=== PATIENT | male | born 1960 | race Caucasian/White ===

== ENCOUNTER → 2021-05-31 11:14 | Outpatient (BNVA) | payer BC, SELFPAY | PROVIDERS: Family Provider Family Medicine; Visit Provider Family Medicine | DX: Z76.89 Persons encountering health services in other specified circumstances (principal) | CPT/HCPCS: 80053; 84443; 85025 ==

== ENCOUNTER 2021-06-25 14:25 | Outpatient (CLI) | payer BC, SELFPAY ==
[2021-06-25 15:30] LABS: Basophils # 0.3 10^3/uL (0.0-0.1); Basophils % 0.4 %; Eosinophils # 0.5 10^3/uL (0.0-0.8); Eosinophils % 0.5 %; Hematocrit 44.1 % (42.0-52.0); Hemoglobin 13.5 g/dL (11.7-16.6); Lymphocytes # 76.3 10^3/uL (0.8-4.8); Lymphocytes % 79.7 %; Mean Corpuscular HGB Conc 30.6 g/dL (30.0-36.0); Mean Corpuscular Hemoglobin 28.2 pg (28.0-34.0); Mean Corpuscular Volume 92.1 fl (80-94); Mean Platelet Volume 11.9 fL (7.4-10.4); Monocytes % 10.5 %; Neutrophils # 7.72 10^3/uL (1.8-7.7); Nucleated Red Blood Cells % 0 %; Platelet Count 235 10^3/cmm (130-400); Red Blood Count 4.79 10^6/uL (4.1-5.3); Red Cell Distribution Width 14.2 % (12.1-15.1)
[2021-06-25 15:50] LABS: Alanine Aminotransferase 16 U/L (0-41); Albumin Level 4.6 g/dL (3.5-5.2); Alkaline Phosphatase 88 IU/L (40-130); Aspartate Amino Transferase 23 U/L (0-40); Blood Urea Nitrogen 13 mg/dL (8-23); Calcium 8.7 mg/dL (8.5-10.5); Carbon Dioxide 28 mmol/L (22-29); Chloride 104 mmol/L (98-107); Globulin 1.9 g/dL (1.3-4.6); Glomerular Filtration Rate 97.6 mL/min (90-130); Glucose 93 mg/dL (65-115); Osmolality Calculated 294 mOsm/kg (285-295); Sodium 142 mmol/L (136-145); Total Bilirubin 0.3 mg/dL (0.15-1.2); Total Protein 6.5 g/dL (6.6-8.7)
[2021-06-25 15:52] LABS: Slide Review Slide Review Perform; White Blood Count 95.8 10^3/uL (4.0-10.0)
[2021-06-25 15:56] LABS: Lactate Dehydrogenase 230 U/L (135-225)
--- NOTE | 2021-06-27 10:14 | ONC CON_ITS ---
Dr. Mattson New Patient Note Patient: Phuc Wood Unit #: [id number]: [id number] Dicatated By: Kevin Mattson M.D.Date of Visit: Jun 25, 2021 Onc MED New Patient/Consult Referring Physician: Trenton Willard D.O. History of Present Illness: Mr. Richard Wood, is a 61-year-old gentleman with recent history of confusion,, incontinence and, acting 'drunk', underwent CT scan of head on May 19, 2021 which showed large right frontal/parietal convexity subacute subdural hematoma producing prominent leftward displacement, patient denies any history of trauma or fall. Subsequently underwent jarrell hole for right-sided subdural drain placement for evacuation of hematoma and lab work-up done at that time, showed leukocytosis/lymphocytosis, white blood count 34.83, hemoglobin 12 g hematocrit 29.1 platelets 203,000 absolute lymphocyte count 21,690 ANC 10,430., CMP within normal limits, because of lower back pain patient underwent CT scan of lumbar which shows retroperitoneal lymphadenopathy and C-spine CT scan also shows cervical lymphadenopathy on May 22, 2021, CBC showed white blood count 42.43 hemoglobin 12.8 g hematocrit 39.1 platelets 256,000 with lymphocytosis, patient also underwent right inguinal lymph node biopsy and flow cytometry showed CD5 positive monoclonal B-cell population is detected, finding consistent with clonal lymphocytic leukemia/small lymphocytic lymphoma. Patient denies smoking or alcohol use, Denies any family history of CLL but one of his uncle with history of non-Hodgkin lymphoma Patient denies any night sweats, denies any recurrent fever, denies any weight loss. As per patient earlier he tried to lose weight by watching his diet but denies any abdominal fullness, denies any jaundice denies any urine or stool color changes, denies any shortness of breath or abdominal pain. Past Medical History: Mr. Wood's medical history is unremarkable. Past Surgical History: Mr. Wood's surgical/procedural history consists of hernia repair, Covid vaccine #2 Moderna in 2020, and Covid vaccine #1 Moderna in 2020. Medications: There is no information available for Current Medications - Patient. Allergies: No Known Allergies. Social History: Mr. Wood is . Mr. Wood has never smoked. He drinks occasionally. He has indicated exposure to the following products: recreational drug use and marijuana user. Family History: Mr. Wood's mother is alive. Mr. Wood's father at age 57: myocardial infarction, and type II diabetes, and hypertension, and heart disease. Review Of Symptoms: Review of Systems is not available for this patient. Vital Signs: Performed on Jun 25, 2021 16:04: 6, 0, 22.05, 1.95 sq.m, 72 in, 96 %, 82 /min, 16 /min, 113/76 mm(hg), 98.6 F, and 162.6 lbs (HIGH). Performance Status: 0 - Fully active, able to carry on all predisease activities without restrictions. (ECOG) Physical Examination: ENMT - No mouth sores, no thrush, no jaundice, bilateral cervical lymphadenopathy index lymph node is about 2 cm size. And bilateral axillary/inguinal lymphadenopathy, Respiratory - Lungs are clear to auscultation, Cardiovascular - Regular rate and rhythm of heart, Abdomen - Soft, bowel sounds present, Extremities - No visible edema, status post right inguinal lymph node excisional biopsy. Lab/Imaging: Most recent lab results are not available for this patient. Impression: Chronic lymphocytic leukemia with peripheral/central lymphadenopathy per right inguinal lymph node biopsy/flow cytometry done on May 22, 2021 and [facility]. CBC done on May 19, 2021 showed white blood count 34.83, hemoglobin 12 g medical 38.1 platelets 203,000 with absolute lymphocyte count 21,000+ Right subdural hematoma status post jarrell hole for drainage on May 22, 2021 Plan: Discussed with patient regarding his labs white blood count 95.8 hemoglobin 13.5 g medical 44.1 platelets 225,000 absolute neutrophil count 7720, absolute lymphocyte count 76,300 CMP within normal limits LDH 230 Clinically, patient doing well with no new signs symptoms e.g. B symptoms and follow-up labs shows progressive leukocytosis/lymphocytosis, 95.8 thousand compared to 60.6 thousand in CBC done on May 31, 2021, but remaining CBC showed hemoglobin/platelet count is within normal range. On exam he has extensive peripheral lymphadenopathy. At this point, will consider CLL molecular prognostic profile and CT scan of chest abdomen pelvis, patient will return to clinic in 2 weeks with CBC CMP and LDH, after reviewing above-mentioned work-up, will plan. Signed By: Kevin Mattson M.D. <<Signature on File>>
== END 2021-06-25 14:26 | disposition home or self-care (01) ==
LOC: ONCMED 14:31
PROVIDERS: PCP Family Medicine; Visit Provider Internal Medicine Hematology & Oncology
DX: C91.10 Chronic lymphocytic leukemia of B-cell type not having achieved remission (principal); R59.0 Localized enlarged lymph nodes; Z86.79 Personal history of other diseases of the circulatory system
CPT/HCPCS: 36415; 80053; 81263; 82232; 83615; 85025; 88185; 88264; 88271; 88367; 88374; 99205

== ENCOUNTER 2021-07-11 10:00 | Oncology outpatient (recurring) (ONCR) | payer BC, SELFPAY ==
--- NOTE | 2021-07-04 10:11 | CT_ITS ---
WS: [id number] CT CHEST, ABDOMEN AND PELVIS WITH CONTRAST. HISTORY: CHRONIC LYMPHOCYTIC LEUKEMIA TECHNIQUE: Contiguous 5 mm axial imaging performed through the chest, abdomen and pelvis with IV cont rast, oral contrast has been provided. Coronal and sagittal reformats chest. Coronal and sagittal ref ormats through the abdomen and pelvis. All CT scans at [facility] use at least one of these d ose optimization techniques: automated exposure control; mA and/or kV adjustment per patient size (in cludes targeted exams where dose is matched to clinical indication); or iterative reconstruction. CONTRAST: Omnipaque 350; 95 mL IV. DLP: 1540.51 mGy.cm COMPARISON: 05/20/[address]: No pulmonary mass or nodule. No pleural effusion. Heart size is normal. No pericardial effu deena. Focal soft tissue thickening involving the anterior pericardium. Normal size pulmonary artery. Normal thoracic aorta. Enlarged inferior RIGHT thyroid extends substernal. There is extensive lymphadenopathy throughout the thorax. Beginning in the lower neck and supraclavic ular there are bilateral enlarged lymph nodes. The largest lymph node LEFT supraclavicular measures 2 .0 cm in diameter. There are numerous lymph nodes present in the supraclavicular regions but greater size and number on the LEFT. Additional level 5 lymph nodes are noted bilaterally with the largest me asuring up to 1.5 cm. Bilateral axillary lymphadenopathy. Numerous enlarged hypervascular lymph nodes with the largest LEFT axilla measuring 3.2 cm. LEFT anterior lymph node measures 1.9 cm and extends between the LEFT subclavian artery and vein. There are additional enlarged RIGHT paratracheal lymph n odes. Mediastinal and hilar lymph nodes. These lymph nodes are poorly defined but there is increased density within the mediastinal fat. Additional bilateral hilar lymph nodes with the largest on the RI GHT measuring 2.2 cm. Subcarinal lymph node measures 1.5 cm. Bilateral retrocrural lymph nodes and th ickening of the retrocrural soft tissue bilaterally. The largest retrocrural lymph node measures 1.2 cm on the RIGHT. Several small lymph nodes adjacent to the distal esophagus. Abdomen CT: Liver is mildly enlarged gland and just greater than 16 cm in length. Mild central bile d uct dilatation with the common bile duct measuring 1.1 cm. Prior cholecystectomy. Spleen is normal si ze at 10 cm in length. No pancreatic head mass identified. Pancreas is negative. Bilateral low-attenu ation adrenal masses. The largest on the LEFT measures 3.5 x 3.1 cm. The RIGHT adrenal gland nodule m easures 2.0 x 1.5 cm. Moderate cortical thinning and atrophy of the RIGHT kidney. No obstruction. Exo phytic cyst from the posterior RIGHT kidney measures 2.2 x 1.7 cm. Normal size LEFT kidney. No obstru ction or hydronephrosis. Mild atherosclerosis aorta. There is extensive lymphadenopathy throughout the abdomen. Beginning at the level of the GE junction there are numerous lymph nodes which extend inferiorly along the gastrohepatic ligament with the larg est measuring 1.5 cm. Numerous lymph nodes at the celiac axis and extending into the marely hepatis. A t the marely hepatis there is a lymph node measuring 2.4 cm which is displacing the common bile duct a nd the pancreatic head anteriorly. Lymph nodes continue from the marely hepatis adjacent to the celiac axis. Numerous retroperitoneal lymph nodes at the level of the renal veins. Para-aortic and aortocav al enlarged lymph nodes. There is also some very mild stranding within the retroperitoneal fat. Large st lymph nodes measure approximately 1.2 cm. Lymphadenopathy continues along the iliac chains, bilate ral. Bilateral inguinal lymph nodes. Largest inguinal lymph node measures 1.7 cm on the RIGHT. No GI tract obstruction evident. The appendix is not definitely identified. There are small lymph nod es in the RIGHT lower quadrant but no evidence for appendicitis. Pelvic CT: No free fluid in the pelvis. Urinary bladder is well distended. Mild encroachment into the bladder by a heterogeneously mildly enlarged prostate. No osteoblastic or osteolytic bone lesions are identified. Single sclerotic focus in the posterior T1 1 vertebral body may be a small bone island. No destructive bone masses. CT/CT chest abd pel w con* IMPRESSION: 1. There is extensive lymphadenopathy throughout the chest, abdomen and pelvis . Bilateral supraclavicular and axillary lymph nodes. Numerous lymph nodes in t he retroperitoneum and along the iliac chains into the inguinal regions as abov e. 2. As compared to the prior neck CT from 05/20/2021 there has been a slight inc rease in size of the supraclavicular lymph nodes. 3. No pulmonary mass or pneumonia. 4. Prior cholecystectomy with mild central bile duct dilatation. 5. Bilateral adrenal low-attenuation masses. Favor bilateral adenomas due to l ow attenuation. On the noncontrast lumbar spine CT of 05/19/2021 adrenal nodules consistent with adenomas. 6. Moderate cortical thinning and atrophy RIGHT kidney with a RIGHT renal cyst . 7. Prostate enlargement.
[2021-07-04] MEDS: iohexol 300 mg/mL 50 mL Btl PO (12:10)
[2021-07-04] MEDS: iohexol 350 mg/mL 100 mL Btl IV (12:10)
[2021-07-11 10:10] LABS: Basophils # 0.5 10^3/uL (0.0-0.1); Basophils % 0.4 %; Eosinophils # 0.5 10^3/uL (0.0-0.8); Eosinophils % 0.5 %; Hematocrit 43.8 % (42.0-52.0); Hemoglobin 13.6 g/dL (11.7-16.6); Lymphocytes # 91.3 10^3/uL (0.8-4.8); Mean Corpuscular HGB Conc 31.1 g/dL (30.0-36.0); Mean Corpuscular Hemoglobin 28.7 pg (28.0-34.0); Mean Corpuscular Volume 92.4 fl (80-94); Mean Platelet Volume 11.6 fL (7.4-10.4); Monocytes # 10.9 10^3/uL (0.2-0.9); Monocytes % 9.8 %; Neutrophils # 7.35 10^3/uL (1.8-7.7); Neutrophils % 6.6 %; Nucleated Red Blood Cells % 0 %; Platelet Count 218 10^3/cmm (130-400); Red Blood Count 4.74 10^6/uL (4.1-5.3); Red Cell Distribution Width 14.6 % (12.1-15.1)
[2021-07-11 10:26] LABS: Alanine Aminotransferase 16 U/L (0-41); Albumin Level 4.4 g/dL (3.5-5.2); Alkaline Phosphatase 90 IU/L (40-130); Anion Gap 13.7 (5-19); Aspartate Amino Transferase 21 U/L (0-40); Blood Urea Nitrogen 12 mg/dL (8-23); Calcium 9.4 mg/dL (8.5-10.5); Carbon Dioxide 27 mmol/L (22-29); Chloride 102 mmol/L (98-107); Globulin 2.6 g/dL (1.3-4.6); Glomerular Filtration Rate 97.6 mL/min (90-130); Glucose 111 mg/dL (65-115); Lactate Dehydrogenase 174 U/L (135-225); Osmolality Calculated 286 mOsm/kg (285-295); Potassium 4.7 mmol/L (3.5-5.1); Sodium 138 mmol/L (136-145); Total Bilirubin 0.4 mg/dL (0.15-1.2)
[2021-07-11 10:46] LABS: White Blood Count 111.4 10^3/uL (4.0-10.0)
[2021-07-11 10:47] LABS: Slide Review Slide Review Perform
== END 2021-07-31 23:59 | disposition home or self-care (01) ==
PROVIDERS: PCP Family Medicine; Visit Provider Internal Medicine Hematology & Oncology
DX: C91.10 Chronic lymphocytic leukemia of B-cell type not having achieved remission (principal); D35.02 Benign neoplasm of left adrenal gland; D35.01 Benign neoplasm of right adrenal gland; N40.0 Benign prostatic hyperplasia without lower urinary tract symptoms; R53.1 Weakness; R53.83 Other fatigue; Z79.899 Other long term (current) drug therapy
CPT/HCPCS: 36415; 71260; 74177; 80053; 83615; 85025

== ENCOUNTER 2021-08-23 07:40 | Oncology outpatient (recurring) (ONCR) | payer BC, SELFPAY ==
[2021-08-23 08:12] LABS: Hematocrit 42.1 % (42.0-52.0); Hemoglobin 12.8 g/dL (11.7-16.6); Mean Corpuscular HGB Conc 30.4 g/dL (30.0-36.0); Mean Corpuscular Hemoglobin 28.3 pg (28.0-34.0); Mean Corpuscular Volume 93.1 fl (80-94); Mean Platelet Volume 12.4 fL (7.4-10.4); Platelet Count 182 10^3/cmm (130-400); Red Blood Count 4.52 10^6/uL (4.1-5.3); Red Cell Distribution Width 14.9 % (12.1-15.1)
[2021-08-23 08:34] LABS: Alanine Aminotransferase 22 U/L (0-41); Albumin Level 4.5 g/dL (3.5-5.2); Alkaline Phosphatase 101 IU/L (40-130); Anion Gap 11.7 (5-19); Aspartate Amino Transferase 33 U/L (0-40); Blood Urea Nitrogen 12 mg/dL (8-23); Calcium 9.3 mg/dL (8.5-10.5); Carbon Dioxide 29 mmol/L (22-29); Chloride 105 mmol/L (98-107); Globulin 1.9 g/dL (1.3-4.6); Glomerular Filtration Rate 97.6 mL/min (90-130); Glucose 128 mg/dL (65-115); Osmolality Calculated 293 mOsm/kg (285-295); Potassium 4.7 mmol/L (3.5-5.1); Sodium 141 mmol/L (136-145); Total Bilirubin 0.4 mg/dL (0.15-1.2); Total Protein 6.4 g/dL (6.6-8.7); Uric Acid 5.1 mg/dL (3.4-7.0)
[2021-08-23 08:41] LABS: Lactate Dehydrogenase 216 U/L (135-225)
[2021-08-23 09:03] LABS: Slide Review Slide Review Perform; Total Cells Counted 100 (0-100)
[2021-08-23 09:04] LABS: Absolute Segmented Neutrophil 9.1 10/cmm (1.6-7.1); Lymphocytes 25 %; Platelet Estimate Decreased (Normal); Segmented Neutrophils 5 %
[2021-08-23 09:06] LABS: White Blood Count 181.8 10^3/uL (4.0-10.0)
[2021-08-23 09:07] LABS: Lymphocytes Absolute 172.7 10^3/cmm (1.2-3.4)
== END 2021-08-30 23:59 | disposition home or self-care (01) ==
PROVIDERS: PCP Family Medicine; Visit Provider Internal Medicine Hematology & Oncology
DX: C91.10 Chronic lymphocytic leukemia of B-cell type not having achieved remission (principal)
CPT/HCPCS: 80053; 83615; 84550; 85007; 85025; 99214

== ENCOUNTER 2021-09-19 14:30 | Oncology outpatient (recurring) (ONCR) | payer BC, SELFPAY ==
[2021-09-05 14:16] LABS: Hematocrit 44.1 % (42.0-52.0); Hemoglobin 12.4 g/dL (11.7-16.6); Mean Corpuscular HGB Conc 28.1 g/dL (30.0-36.0); Mean Corpuscular Volume 96.1 fl (80-94); Platelet Count 215 10^3/cmm (130-400); Red Blood Count 4.59 10^6/uL (4.1-5.3); Red Cell Distribution Width 16.5 % (12.1-15.1)
[2021-09-05 14:28] LABS: Alanine Aminotransferase 15 U/L (0-41); Albumin Level 4.4 g/dL (3.5-5.2); Alkaline Phosphatase 119 IU/L (40-130); Anion Gap 13.6 (5-19); Aspartate Amino Transferase 17 U/L (0-40); Blood Urea Nitrogen 11 mg/dL (8-23); Calcium 9.4 mg/dL (8.5-10.5); Carbon Dioxide 29 mmol/L (22-29); Chloride 99 mmol/L (98-107); Globulin 2.4 g/dL (1.3-4.6); Glomerular Filtration Rate 97.6 mL/min (90-130); Glucose 97 mg/dL (65-115); Lactate Dehydrogenase 148 U/L (135-225); Osmolality Calculated 283 mOsm/kg (285-295); Potassium 4.6 mmol/L (3.5-5.1); Sodium 137 mmol/L (136-145); Total Bilirubin 0.3 mg/dL (0.15-1.2); Total Protein 6.8 g/dL (6.6-8.7); Uric Acid 3.2 mg/dL (3.4-7.0)
[2021-09-05 14:37] LABS: White Blood Count 223.5 10^3/uL (4.0-10.0)
[2021-09-05 14:38] LABS: Slide Review Slide Review Perform
[2021-09-05 14:46] LABS: Absolute Eosinophils 8.9 10^3/cmm (0.0-0.7); Absolute Neutrophil 6.7 10^3/cmm (1.4-6.5); Absolute Segmented Neutrophil 6.7 10/cmm (1.6-7.1); Eosinophils 4 %; Lymphocytes 93 %; Lymphocytes Absolute 207.9 10^3/cmm (1.2-3.4); Platelet Estimate Normal (Normal); Segmented Neutrophils 3 %; Total Cells Counted 100 (0-100)
[2021-09-05 14:59] LABS: Smudge Cells 1+
[2021-09-12 09:34] LABS: Basophils # 0.1 10^3/uL (0.0-0.1); Eosinophils # 0.4 10^3/uL (0.0-0.8); Eosinophils % 0.2 %; Hematocrit 42.6 % (42.0-52.0); Hemoglobin 12.5 g/dL (11.7-16.6); Lymphocytes % 95.8 %; Mean Corpuscular HGB Conc 29.3 g/dL (30.0-36.0); Mean Corpuscular Hemoglobin 28.1 pg (28.0-34.0); Mean Corpuscular Volume 95.7 fl (80-94); Mean Platelet Volume 11.6 fL (7.4-10.4); Monocytes # 1.2 10^3/uL (0.2-0.9); Monocytes % 0.5 %; Neutrophils # 6.66 10^3/uL (1.8-7.7); Neutrophils % 3.1 %; Nucleated Red Blood Cells % 0 %; Platelet Count 234 10^3/cmm (130-400); Red Blood Count 4.45 10^6/uL (4.1-5.3)
[2021-09-12 09:58] LABS: Alanine Aminotransferase 20 U/L (0-41); Albumin Level 4.5 g/dL (3.5-5.2); Alkaline Phosphatase 117 IU/L (40-130); Anion Gap 11.5 (5-19); Aspartate Amino Transferase 17 U/L (0-40); Blood Urea Nitrogen 14 mg/dL (8-23); Calcium 9.4 mg/dL (8.5-10.5); Carbon Dioxide 30 mmol/L (22-29); Chloride 102 mmol/L (98-107); Globulin 2.2 g/dL (1.3-4.6); Glomerular Filtration Rate 113.9 mL/min (90-130); Glucose 195 mg/dL (65-115); Osmolality Calculated 294 mOsm/kg (285-295); Potassium 4.5 mmol/L (3.5-5.1); Sodium 139 mmol/L (136-145); Total Bilirubin 0.4 mg/dL (0.15-1.2); Total Protein 6.7 g/dL (6.6-8.7)
[2021-09-12 10:00] LABS: Lymphocytes # 208.5 10^3/uL (0.8-4.8); Slide Review Slide Review Perform; White Blood Count 217.5 10^3/uL (4.0-10.0)
[2021-09-12 10:03] LABS: Lactate Dehydrogenase 150 U/L (135-225)
[2021-09-19 15:18] LABS: Basophils # 0.2 10^3/uL (0.0-0.1); Basophils % 0.1 %; Eosinophils # 0.4 10^3/uL (0.0-0.8); Eosinophils % 0.2 %; Lymphocytes % 92.1 %; Mean Corpuscular Hemoglobin 28.2 pg (28.0-34.0); Mean Corpuscular Volume 94.1 fl (80-94); Mean Platelet Volume 11.2 fL (7.4-10.4); Monocytes # 7.7 10^3/uL (0.2-0.9); Monocytes % 3.1 %; Neutrophils # 9.91 10^3/uL (1.8-7.7); Neutrophils % 3.9 %; Nucleated Red Blood Cells % 0 %; Platelet Count 256 10^3/cmm (130-400); Red Blood Count 4.25 10^6/uL (4.1-5.3); Red Cell Distribution Width 15.5 % (12.1-15.1)
[2021-09-19 16:14] LABS: Alanine Aminotransferase 18 U/L (0-41); Albumin Level 4.3 g/dL (3.5-5.2); Alkaline Phosphatase 117 IU/L (40-130); Anion Gap 13.6 (5-19); Aspartate Amino Transferase 23 U/L (0-40); Blood Urea Nitrogen 10 mg/dL (8-23); Calcium 8.9 mg/dL (8.5-10.5); Carbon Dioxide 28 mmol/L (22-29); Chloride 102 mmol/L (98-107); Globulin 2.1 g/dL (1.3-4.6); Glomerular Filtration Rate 113.9 mL/min (90-130); Glucose 105 mg/dL (65-115); Osmolality Calculated 287 mOsm/kg (285-295); Potassium 4.6 mmol/L (3.5-5.1); Sodium 139 mmol/L (136-145); Total Bilirubin 0.3 mg/dL (0.15-1.2); Total Protein 6.4 g/dL (6.6-8.7)
[2021-09-19 18:08] LABS: Lymphocytes # 230.1 10^3/uL (0.8-4.8); Slide Review Slide Review Perform
[2021-09-20 10:35] LABS: White Blood Count 249.8 10^3/uL (4.0-10.0)
== END 2021-09-30 23:59 | disposition home or self-care (01) ==
PROVIDERS: Nurse Practitioner Family; PCP Family Medicine; Visit Provider Internal Medicine Hematology & Oncology
DX: C91.10 Chronic lymphocytic leukemia of B-cell type not having achieved remission (principal)
CPT/HCPCS: 36415; 80053; 83615; 84550; 85007; 85025

== ENCOUNTER 2021-10-26 09:30 | Oncology outpatient (recurring) (ONCR) | payer BC, SELFPAY ==
[2021-10-04 09:26] LABS: Basophils # 0.2 10^3/uL (0.0-0.1); Basophils % 0.1 %; Eosinophils # 0.5 10^3/uL (0.0-0.8); Eosinophils % 0.2 %; Hematocrit 40.9 % (42.0-52.0); Lymphocytes % 91.3 %; Mean Corpuscular HGB Conc 29.3 g/dL (30.0-36.0); Mean Corpuscular Volume 95.3 fl (80-94); Mean Platelet Volume 11.5 fL (7.4-10.4); Monocytes # 5.1 10^3/uL (0.2-0.9); Monocytes % 2.3 %; Neutrophils # 12.08 10^3/uL (1.8-7.7); Neutrophils % 5.6 %; Nucleated Red Blood Cells % 0 %; Platelet Count 233 10^3/cmm (130-400); Red Blood Count 4.29 10^6/uL (4.1-5.3); Red Cell Distribution Width 16.3 % (12.1-15.1)
[2021-10-04 09:46] LABS: Lymphocytes # 199.9 10^3/uL (0.8-4.8); Slide Review Slide Review Perform; White Blood Count 218.9 10^3/uL (4.0-10.0)
[2021-10-04 09:48] LABS: Alanine Aminotransferase 13 U/L (0-41); Albumin Level 4.1 g/dL (3.5-5.2); Alkaline Phosphatase 126 IU/L (40-130); Anion Gap 12.7 (5-19); Aspartate Amino Transferase 18 U/L (0-40); Blood Urea Nitrogen 9 mg/dL (8-23); Calcium 9.4 mg/dL (8.5-10.5); Carbon Dioxide 26 mmol/L (22-29); Chloride 102 mmol/L (98-107); Globulin 2.3 g/dL (1.3-4.6); Glomerular Filtration Rate 113.9 mL/min (90-130); Glucose 181 mg/dL (65-115); Osmolality Calculated 285 mOsm/kg (285-295); Potassium 4.7 mmol/L (3.5-5.1); Sodium 136 mmol/L (136-145); Total Bilirubin 0.3 mg/dL (0.15-1.2); Total Protein 6.4 g/dL (6.6-8.7)
[2021-10-26 09:57] LABS: Hematocrit 43.3 % (42.0-52.0); Hemoglobin 12.1 g/dL (11.7-16.6); Mean Corpuscular HGB Conc 27.9 g/dL (30.0-36.0); Mean Corpuscular Hemoglobin 28.5 pg (28.0-34.0); Mean Corpuscular Volume 102.1 fl (80-94); Mean Platelet Volume 11.7 fL (7.4-10.4); Platelet Count 199 10^3/cmm (130-400); Red Blood Count 4.24 10^6/uL (4.1-5.3); Red Cell Distribution Width 16.4 % (12.1-15.1)
[2021-10-26 10:24] LABS: Alanine Aminotransferase 14 U/L (0-41); Albumin Level 4.2 g/dL (3.5-5.2); Alkaline Phosphatase 122 U/L (40-130); Aspartate Amino Transferase 18 U/L (0-40); Blood Urea Nitrogen 11 mg/dL (8-23); Calcium 8.9 mg/dL (8.5-10.5); Carbon Dioxide 29 mmol/L (22-29); Chloride 105 mmol/L (98-107); Creatinine Clr Calc Pharmacy 113.3764; Globulin 2.3 g/dL (1.3-4.6); Glomerular Filtration Rate 113.9 mL/min (90-130); Glucose 129 mg/dL (65-115); Osmolality Calculated 295 mOsm/kg (285-295); Sodium 142 mmol/L (136-145); Total Bilirubin 0.2 mg/dL (0.15-1.2); Total Protein 6.5 g/dL (6.6-8.7)
[2021-10-26 10:27] LABS: Anion Gap 13.6 (5-19); Potassium 5.6 mmol/L (3.5-5.1)
[2021-10-26 11:10] LABS: White Blood Count 187.9 10^3/uL (4.0-10.0)
[2021-10-26 11:11] LABS: Absolute Eosinophils 1.8 10^3/cmm (0.0-0.7); Absolute Neutrophil 13.2 10^3/cmm (1.4-6.5); Absolute Segmented Neutrophil 13.2 10/cmm (1.6-7.1); Eosinophils 1 %; Lymphocytes 61 %; Lymphocytes Absolute 169.1 10^3/cmm (1.2-3.4); Monocytes Absolute 5.6 10^3/cmm (0.1-0.6); Platelet Estimate Normal (Normal); Segmented Neutrophils 7 %; Total Cells Counted 100 (0-100)
== END 2021-10-31 23:59 | disposition home or self-care (01) ==
PROVIDERS: Nurse Practitioner Family; PCP Family Medicine; Visit Provider Internal Medicine Hematology & Oncology
DX: C91.10 Chronic lymphocytic leukemia of B-cell type not having achieved remission (principal)
CPT/HCPCS: 36415; 80053; 85007; 85025

== ENCOUNTER 2021-11-28 13:36 | Oncology outpatient (recurring) (ONCR) | payer BC, SELFPAY ==
[2021-11-28 14:17] LABS: Basophils # 0.1 10^3/uL (0.0-0.1); Eosinophils # 0.2 10^3/uL (0.0-0.8); Eosinophils % 0.1 %; Hematocrit 43.2 % (42.0-52.0); Lymphocytes % 96.2 %; Mean Corpuscular HGB Conc 27.8 g/dL (30.0-36.0); Mean Corpuscular Hemoglobin 27.8 pg (28.0-34.0); Mean Corpuscular Volume 100.2 fl (80-94); Monocytes # 0.9 10^3/uL (0.2-0.9); Monocytes % 0.4 %; Neutrophils # 6.57 10^3/uL (1.8-7.7); Neutrophils % 3.1 %; Nucleated Red Blood Cells % 0 %; Platelet Count 230 10^3/cmm (130-400); Red Blood Count 4.31 10^6/uL (4.1-5.3); Red Cell Distribution Width 15.7 % (12.1-15.1)
[2021-11-28 14:37] LABS: Lymphocytes # 203.3 10^3/uL (0.8-4.8)
[2021-11-28 14:39] LABS: Slide Review Slide Review Perform
[2021-11-28 14:40] LABS: Alanine Aminotransferase 13 U/L (0-41); Albumin Level 4.1 g/dL (3.5-5.2); Alkaline Phosphatase 98 U/L (40-130); Anion Gap 15.6 (5-19); Aspartate Amino Transferase 14 U/L (0-40); Blood Urea Nitrogen 12 mg/dL (8-23); Calcium 9.3 mg/dL (8.5-10.5); Carbon Dioxide 26 mmol/L (22-29); Chloride 104 mmol/L (98-107); Globulin 2.5 g/dL (1.3-4.6); Glomerular Filtration Rate 97.6 mL/min (90-130); Glucose 142 mg/dL (65-115); Osmolality Calculated 294 mOsm/kg (285-295); Potassium 4.6 mmol/L (3.5-5.1); Sodium 141 mmol/L (136-145); Total Bilirubin 0.3 mg/dL (0.15-1.2); Total Protein 6.6 g/dL (6.6-8.7)
[2021-11-28 14:41] LABS: White Blood Count 211.4 10^3/uL (4.0-10.0)
== END 2021-11-30 23:59 | disposition home or self-care (01) ==
PROVIDERS: Nurse Practitioner Family; PCP Family Medicine; Visit Provider Internal Medicine Hematology & Oncology
DX: C91.10 Chronic lymphocytic leukemia of B-cell type not having achieved remission (principal)
CPT/HCPCS: 36415; 80053; 85025

== ENCOUNTER 2021-12-28 07:40 | Oncology outpatient (recurring) (ONCR) | payer BC, SELFPAY ==
[2021-12-28 08:04] LABS: Basophils # 0.1 10^3/uL (0.0-0.1); Eosinophils # 0.3 10^3/uL (0.0-0.8); Eosinophils % 0.2 %; Hemoglobin 13.2 g/dL (11.7-16.6); Lymphocytes % 96.5 %; Mean Corpuscular HGB Conc 29.3 g/dL (30.0-36.0); Mean Corpuscular Volume 98.9 fl (80-94); Mean Platelet Volume 11.7 fL (7.4-10.4); Monocytes # 0.9 10^3/uL (0.2-0.9); Monocytes % 0.5 %; Neutrophils # 4.83 10^3/uL (1.8-7.7); Neutrophils % 2.6 %; Nucleated Red Blood Cells % 0 %; Platelet Count 232 10^3/cmm (130-400); Red Blood Count 4.55 10^6/uL (4.1-5.3); Red Cell Distribution Width 15.3 % (12.1-15.1)
[2021-12-28 08:25] LABS: Alanine Aminotransferase 14 U/L (0-41); Albumin Level 4.3 g/dL (3.5-5.2); Alkaline Phosphatase 95 U/L (40-130); Anion Gap 11.2 (5-19); Aspartate Amino Transferase 16 U/L (0-40); Blood Urea Nitrogen 12 mg/dL (8-23); Calcium 9.4 mg/dL (8.5-10.5); Carbon Dioxide 31 mmol/L (22-29); Chloride 103 mmol/L (98-107); Globulin 2.3 g/dL (1.3-4.6); Glomerular Filtration Rate 113.9 mL/min (90-130); Glucose 136 mg/dL (65-115); Lactate Dehydrogenase 116 U/L (135-225); Osmolality Calculated 294 mOsm/kg (285-295); Potassium 4.2 mmol/L (3.5-5.1); Sodium 141 mmol/L (136-145); Total Bilirubin 0.4 mg/dL (0.15-1.2); Total Protein 6.6 g/dL (6.6-8.7)
[2021-12-28 08:34] LABS: Lymphocytes # 178.1 10^3/uL (0.8-4.8)
[2021-12-28 08:38] LABS: Slide Review Slide Review Perform; White Blood Count 184.5 10^3/uL (4.0-10.0)
== END 2021-12-31 23:59 | disposition home or self-care (01) ==
PROVIDERS: PCP Family Medicine; Visit Provider Internal Medicine Hematology & Oncology
DX: C91.10 Chronic lymphocytic leukemia of B-cell type not having achieved remission (principal)
CPT/HCPCS: 36415; 80053; 83615; 85025

== ENCOUNTER 2022-02-04 12:03 | Oncology outpatient (recurring) (ONCR) | payer BC, SELFPAY ==
[2022-02-04 12:57] LABS: Alanine Aminotransferase 12 U/L (0-41); Alkaline Phosphatase 99 U/L (40-130); Anion Gap 9.9 (5-19); Aspartate Amino Transferase 14 U/L (0-40); Blood Urea Nitrogen 9 mg/dL (8-23); Carbon Dioxide 29 mmol/L (22-29); Chloride 100 mmol/L (98-107); Globulin 2.7 g/dL (1.3-4.6); Glomerular Filtration Rate 136.1 mL/min (90-130); Glucose 94 mg/dL (65-115); Lactate Dehydrogenase 127 U/L (135-225); Osmolality Calculated 278 mOsm/kg (285-295); Potassium 3.9 mmol/L (3.5-5.1); Sodium 135 mmol/L (136-145); Total Bilirubin 0.3 mg/dL (0.15-1.2); Total Protein 6.7 g/dL (6.6-8.7)
[2022-02-04 14:05] LABS: Basophils # 0.1 10^3/uL (0.0-0.1); Basophils % 0.1 %; Eosinophils # 0.2 10^3/uL (0.0-0.8); Eosinophils % 0.2 %; Hematocrit 43.6 % (42.0-52.0); Hemoglobin 12.9 g/dL (11.7-16.6); Lymphocytes % 94.9 %; Mean Corpuscular HGB Conc 29.6 g/dL (30.0-36.0); Mean Corpuscular Hemoglobin 29.1 pg (28.0-34.0); Mean Corpuscular Volume 98.2 fl (80-94); Mean Platelet Volume 11.9 fL (7.4-10.4); Monocytes # 0.8 10^3/uL (0.2-0.9); Monocytes % 0.6 %; Nucleated Red Blood Cells % 0 %; Platelet Count 222 10^3/cmm (130-400); Red Blood Count 4.44 10^6/uL (4.1-5.3); Red Cell Distribution Width 15.3 % (12.1-15.1)
[2022-02-04 14:12] LABS: Lymphocytes # 122.6 10^3/uL (0.8-4.8); Slide Review Slide Review Perform; White Blood Count 129.2 10^3/uL (4.0-10.0)
== END 2022-03-02 23:59 | disposition home or self-care (01) ==
PROVIDERS: PCP Family Medicine; Visit Provider Internal Medicine Hematology & Oncology
DX: C91.10 Chronic lymphocytic leukemia of B-cell type not having achieved remission (principal); R53.1 Weakness; R53.83 Other fatigue; R21 Rash and other nonspecific skin eruption; Z79.899 Other long term (current) drug therapy
CPT/HCPCS: 36415; 80053; 83615; 85025

== ENCOUNTER 2022-03-06 09:29 | Oncology outpatient (recurring) (ONCR) | payer BC, SELFPAY ==
[2022-03-06 10:39] LABS: Hematocrit 44.3 % (42.0-52.0); Hemoglobin 13.1 g/dL (11.7-16.6); Mean Corpuscular HGB Conc 29.6 g/dL (30.0-36.0); Mean Corpuscular Hemoglobin 28.5 pg (28.0-34.0); Mean Corpuscular Volume 96.5 fl (80-94); Mean Platelet Volume 11.5 fL (7.4-10.4); Platelet Count 220 10^3/cmm (130-400); Red Blood Count 4.59 10^6/uL (4.1-5.3); Red Cell Distribution Width 14.8 % (12.1-15.1)
[2022-03-06 11:05] LABS: Alanine Aminotransferase 13 U/L (0-41); Albumin Level 4.3 g/dL (3.5-5.2); Alkaline Phosphatase 84 U/L (40-130); Anion Gap 11.4 (5-19); Aspartate Amino Transferase 15 U/L (0-40); Blood Urea Nitrogen 9 mg/dL (8-23); Calcium 8.7 mg/dL (8.5-10.5); Carbon Dioxide 30 mmol/L (22-29); Chloride 105 mmol/L (98-107); Glomerular Filtration Rate 167.9 mL/min (90-130); Glucose 110 mg/dL (65-115); Osmolality Calculated 293 mOsm/kg (285-295); Potassium 4.4 mmol/L (3.5-5.1); Sodium 142 mmol/L (136-145); Total Bilirubin 0.3 mg/dL (0.15-1.2); Total Protein 6.3 g/dL (6.6-8.7)
[2022-03-06 11:28] LABS: White Blood Count 87.6 10^3/uL (4.0-10.0)
[2022-03-06 11:29] LABS: Absolute Segmented Neutrophil 3.5 10/cmm (1.6-7.1); Eosinophils 0 %; Segmented Neutrophils 4 %; Total Cells Counted 100 (0-100)
[2022-03-06 11:30] LABS: Absolute Neutrophil 3.5 10^3/cmm (1.4-6.5); Lymphocytes 93 %; Lymphocytes Absolute 83.2 10^3/cmm (1.2-3.4); Monocytes Absolute 0.9 10^3/cmm (0.1-0.6); Pathology Refferal Yes; Platelet Estimate Normal (Normal)
[2022-03-06 11:42] LABS: Blastocytes 1 % (0-0)
== END 2022-04-02 23:59 | disposition home or self-care (01) ==
PROVIDERS: PCP Family Medicine; Visit Provider Internal Medicine Hematology & Oncology
DX: C91.10 Chronic lymphocytic leukemia of B-cell type not having achieved remission (principal); R53.1 Weakness; R53.83 Other fatigue; Z79.899 Other long term (current) drug therapy
CPT/HCPCS: 80053; 80503; 85007; 85025

== ENCOUNTER 2022-04-05 08:11 | Oncology outpatient (recurring) (ONCR) | payer BC, SELFPAY ==
[2022-04-05 08:55] LABS: Basophils # 0.1 10^3/uL (0.0-0.1); Basophils % 0.1 %; Eosinophils # 0.3 10^3/uL (0.0-0.8); Eosinophils % 0.4 %; Hematocrit 45.4 % (42.0-52.0); Hemoglobin 13.7 g/dL (11.7-16.6); Lymphocytes # 57.4 10^3/uL (0.8-4.8); Lymphocytes % 90.8 %; Mean Corpuscular HGB Conc 30.2 g/dL (30.0-36.0); Mean Corpuscular Volume 96.2 fl (80-94); Mean Platelet Volume 11.4 fL (7.4-10.4); Monocytes # 0.7 10^3/uL (0.2-0.9); Neutrophils # 4.69 10^3/uL (1.8-7.7); Neutrophils % 7.5 %; Nucleated Red Blood Cells % 0 %; Platelet Count 246 10^3/cmm (130-400); Red Blood Count 4.72 10^6/uL (4.1-5.3); Red Cell Distribution Width 14.4 % (12.1-15.1)
[2022-04-05 09:14] LABS: Alanine Aminotransferase 13 U/L (0-41); Albumin Level 4.1 g/dL (3.5-5.2); Alkaline Phosphatase 86 U/L (40-130); Anion Gap 9.5 (5-19); Aspartate Amino Transferase 16 U/L (0-40); Blood Urea Nitrogen 8 mg/dL (8-23); Calcium 8.8 mg/dL (8.5-10.5); Carbon Dioxide 32 mmol/L (22-29); Chloride 104 mmol/L (98-107); Glomerular Filtration Rate 135.6 mL/min (90-130); Glucose 151 mg/dL (65-115); Lactate Dehydrogenase 130 U/L (135-225); Osmolality Calculated 293 mOsm/kg (285-295); Potassium 4.5 mmol/L (3.5-5.1); Sodium 141 mmol/L (136-145); Total Bilirubin 0.4 mg/dL (0.15-1.2); Total Protein 6.1 g/dL (6.6-8.7)
[2022-04-05 10:26] LABS: White Blood Count 63.2 10^3/uL (4.0-10.0)
[2022-04-05 10:29] LABS: Slide Review Slide Review Perform
== END 2022-04-30 23:59 | disposition home or self-care (01) ==
PROVIDERS: PCP Family Medicine; Visit Provider Internal Medicine Hematology & Oncology
DX: C91.10 Chronic lymphocytic leukemia of B-cell type not having achieved remission (principal); R53.1 Weakness; R53.83 Other fatigue; Z79.899 Other long term (current) drug therapy
CPT/HCPCS: 36415; 80053; 83615; 85025

== ENCOUNTER 2022-05-31 07:51 | Oncology outpatient (recurring) (ONCR) | payer BC, SELFPAY ==
[2022-05-03 08:40] LABS: Basophils # 0.3 10^3/uL (0.0-0.1); Basophils % 0.6 %; Eosinophils # 0.3 10^3/uL (0.0-0.8); Eosinophils % 0.7 %; Hemoglobin 13.5 g/dL (11.7-16.6); Lymphocytes # 40.5 10^3/uL (0.8-4.8); Mean Corpuscular HGB Conc 30.7 g/dL (30.0-36.0); Mean Corpuscular Hemoglobin 29.8 pg (28.0-34.0); Mean Corpuscular Volume 97.1 fl (80-94); Monocytes # 0.6 10^3/uL (0.2-0.9); Monocytes % 1.4 %; Neutrophils # 5.25 10^3/uL (1.8-7.7); Neutrophils % 11.1 %; Nucleated Red Blood Cells % 0 %; Platelet Count 224 10^3/cmm (130-400); Red Blood Count 4.53 10^6/uL (4.1-5.3); Red Cell Distribution Width 14.5 % (12.1-15.1)
[2022-05-03 08:56] LABS: Alanine Aminotransferase 13 U/L (0-41); Albumin Level 3.9 g/dL (3.5-5.2); Alkaline Phosphatase 98 U/L (40-130); Aspartate Amino Transferase 16 U/L (0-40); Blood Urea Nitrogen 8 mg/dL (8-23); Calcium 8.2 mg/dL (8.5-10.5); Carbon Dioxide 29 mmol/L (22-29); Chloride 106 mmol/L (98-107); Glomerular Filtration Rate 135.6 mL/min (90-130); Glucose 134 mg/dL (65-115); Lactate Dehydrogenase 109 U/L (135-225); Osmolality Calculated 296 mOsm/kg (285-295); Sodium 143 mmol/L (136-145); Total Bilirubin 0.3 mg/dL (0.15-1.2); Total Protein 5.9 g/dL (6.6-8.7)
[2022-05-03 09:13] LABS: White Blood Count 47.1 10^3/uL (4.0-10.0)
[2022-05-03 09:14] LABS: Slide Review Slide Review Perform
[2022-05-31 08:06] LABS: Basophils # 0.3 10^3/uL (0.0-0.1); Basophils % 0.8 %; Eosinophils # 0.3 10^3/uL (0.0-0.8); Eosinophils % 0.8 %; Hematocrit 45.3 % (42.0-52.0); Hemoglobin 14.2 g/dL (11.7-16.6); Lymphocytes # 32.3 10^3/uL (0.8-4.8); Lymphocytes % 84.5 %; Mean Corpuscular HGB Conc 31.3 g/dL (30.0-36.0); Mean Corpuscular Volume 95.6 fl (80-94); Mean Platelet Volume 11.2 fL (7.4-10.4); Monocytes # 0.7 10^3/uL (0.2-0.9); Monocytes % 1.7 %; Neutrophils # 4.61 10^3/uL (1.8-7.7); Nucleated Red Blood Cells % 0 %; Platelet Count 243 10^3/cmm (130-400); Red Blood Count 4.74 10^6/uL (4.1-5.3); Red Cell Distribution Width 13.9 % (12.1-15.1)
[2022-05-31 08:16] LABS: Alanine Aminotransferase 14 U/L (0-41); Albumin Level 3.9 g/dL (3.5-5.2); Alkaline Phosphatase 82 U/L (40-130); Aspartate Amino Transferase 18 U/L (0-40); Blood Urea Nitrogen 12 mg/dL (8-23); Calcium 8.8 mg/dL (8.5-10.5); Carbon Dioxide 28 mmol/L (22-29); Chloride 107 mmol/L (98-107); Globulin 2.4 g/dL (1.3-4.6); Glomerular Filtration Rate 113.5 mL/min (90-130); Glucose 130 mg/dL (65-115); Osmolality Calculated 294 mOsm/kg (285-295); Sodium 141 mmol/L (136-145); Total Bilirubin 0.3 mg/dL (0.15-1.2); Total Protein 6.3 g/dL (6.6-8.7)
[2022-05-31 08:27] LABS: Slide Review Slide Review Perform
[2022-05-31 08:28] LABS: Anion Gap 10.2 (5-19); Potassium 4.2 mmol/L (3.5-5.1)
[2022-05-31 08:29] LABS: White Blood Count 38.2 10^3/uL (4.0-10.0)
== END 2022-05-31 23:59 | disposition home or self-care (01) ==
PROVIDERS: PCP Family Medicine; Visit Provider Internal Medicine Hematology & Oncology
DX: C91.10 Chronic lymphocytic leukemia of B-cell type not having achieved remission (principal)
CPT/HCPCS: 36415; 80053; 83615; 85025

== ENCOUNTER 2022-07-12 07:47 | Oncology outpatient (recurring) (ONCR) | payer BC, SELFPAY ==
[2022-07-12 08:23] LABS: Basophils # 0.2 10^3/uL (0.0-0.1); Basophils % 0.8 %; Eosinophils # 0.3 10^3/uL (0.0-0.8); Eosinophils % 0.9 %; Hematocrit 46.4 % (42.0-52.0); Hemoglobin 14.5 g/dL (11.7-16.6); Lymphocytes # 24.4 10^3/uL (0.8-4.8); Lymphocytes % 81.2 %; Mean Corpuscular HGB Conc 31.3 g/dL (30.0-36.0); Mean Corpuscular Hemoglobin 29.7 pg (28.0-34.0); Mean Corpuscular Volume 95.1 fl (80-94); Mean Platelet Volume 11.5 fL (7.4-10.4); Monocytes # 0.5 10^3/uL (0.2-0.9); Monocytes % 1.7 %; Neutrophils # 4.58 10^3/uL (1.8-7.7); Neutrophils % 15.2 %; Nucleated Red Blood Cells % 0 %; Platelet Count 244 10^3/cmm (130-400); Red Blood Count 4.88 10^6/uL (4.1-5.3); Red Cell Distribution Width 14.1 % (12.1-15.1)
[2022-07-12 08:40] LABS: Alanine Aminotransferase 13 U/L (0-41); Albumin Level 4.2 g/dL (3.5-5.2); Alkaline Phosphatase 71 U/L (40-130); Anion Gap 12.9 (5-19); Aspartate Amino Transferase 17 U/L (0-40); Blood Urea Nitrogen 8 mg/dL (8-23); Calcium 8.5 mg/dL (8.5-10.5); Carbon Dioxide 30 mmol/L (22-29); Chloride 104 mmol/L (98-107); Glomerular Filtration Rate 135.6 mL/min (90-130); Glucose 164 mg/dL (65-115); Lactate Dehydrogenase 113 U/L (135-225); Osmolality Calculated 298 mOsm/kg (285-295); Potassium 3.9 mmol/L (3.5-5.1); Sodium 143 mmol/L (136-145); Total Bilirubin 0.5 mg/dL (0.15-1.2); Total Protein 6.2 g/dL (6.6-8.7)
[2022-07-12 09:15] LABS: Slide Review Slide Review Perform; White Blood Count 30.1 10^3/uL (4.0-10.0)
== END 2022-07-31 23:59 | disposition home or self-care (01) ==
PROVIDERS: PCP Family Medicine; Visit Provider Internal Medicine Hematology & Oncology
DX: C91.10 Chronic lymphocytic leukemia of B-cell type not having achieved remission (principal)
CPT/HCPCS: 36415; 80053; 83615; 85025

== ENCOUNTER 2022-08-23 07:23 | Oncology outpatient (recurring) (ONCR) | payer BC, SELFPAY ==
[2022-08-23 07:28] VITALS: BP 117/80; PULSE 78; RESP 18; TEMP 36.7; O2SAT 98
[2022-08-23 07:43] LABS: Hematocrit 47.2 % (42.0-52.0); Hemoglobin 14.9 g/dL (11.7-16.6); Mean Corpuscular HGB Conc 31.6 g/dL (30.0-36.0); Mean Platelet Volume 11.4 fL (7.4-10.4); Platelet Count 251 10^3/cmm (130-400); Red Blood Count 4.97 10^6/uL (4.1-5.3); Red Cell Distribution Width 13.6 % (12.1-15.1); White Blood Count 23.4 10^3/uL (4.0-10.0)
[2022-08-23 08:03] LABS: Alanine Aminotransferase 16 U/L (0-41); Albumin Level 4.3 g/dL (3.5-5.2); Alkaline Phosphatase 61 U/L (40-130); Anion Gap 10.6 (5-19); Aspartate Amino Transferase 18 U/L (0-40); Blood Urea Nitrogen 11 mg/dL (8-23); Calcium 8.9 mg/dL (8.5-10.5); Carbon Dioxide 29 mmol/L (22-29); Chloride 104 mmol/L (98-107); Globulin 2.2 g/dL (1.3-4.6); Glomerular Filtration Rate 97.3 mL/min (90-130); Glucose 129 mg/dL (65-115); Lactate Dehydrogenase 96 U/L (135-225); Osmolality Calculated 289 mOsm/kg (285-295); Potassium 4.6 mmol/L (3.5-5.1); Sodium 139 mmol/L (136-145); Total Bilirubin 0.5 mg/dL (0.15-1.2); Total Protein 6.5 g/dL (6.6-8.7)
[2022-08-23 08:22] LABS: Absolute Neutrophil 3.5 10^3/cmm (1.4-6.5); Absolute Segmented Neutrophil 3.5 10/cmm (1.6-7.1); Eosinophils 0 %; Lymphocytes 70 %; Lymphocytes Absolute 19.2 10^3/cmm (1.2-3.4); Monocytes Absolute 0.7 10^3/cmm (0.1-0.6); Platelet Estimate Normal (Normal); Segmented Neutrophils 15 %; Slide Review Slide Review Perform; Total Cells Counted 100 (0-100)
== END 2022-08-30 23:59 | disposition home or self-care (01) ==
PROVIDERS: PCP Family Medicine; Visit Provider Internal Medicine Hematology & Oncology
DX: C91.10 Chronic lymphocytic leukemia of B-cell type not having achieved remission (principal)
CPT/HCPCS: 36415; 80053; 83615; 85007; 85025

== ENCOUNTER 2022-09-20 07:39 | Oncology outpatient (recurring) (ONCR) | payer BC, SELFPAY ==
[2022-09-20 07:48] VITALS: BP 112/81; PULSE 78; RESP 18; TEMP 37; O2SAT 98
[2022-09-20 08:10] LABS: Hematocrit 44.9 % (42.0-52.0); Hemoglobin 14.4 g/dL (11.7-16.6); Mean Corpuscular HGB Conc 32.1 g/dL (30.0-36.0); Mean Corpuscular Hemoglobin 30.6 pg (28.0-34.0); Mean Corpuscular Volume 95.3 fl (80-94); Mean Platelet Volume 11.9 fL (7.4-10.4); Platelet Count 223 10^3/cmm (130-400); Red Blood Count 4.71 10^6/uL (4.1-5.3); Red Cell Distribution Width 13.7 % (12.1-15.1); White Blood Count 23.5 10^3/uL (4.0-10.0)
[2022-09-20 08:18] LABS: Alanine Aminotransferase 12 U/L (0-41); Albumin Level 4.1 g/dL (3.5-5.2); Alkaline Phosphatase 65 U/L (40-130); Aspartate Amino Transferase 14 U/L (0-40); Blood Urea Nitrogen 8 mg/dL (8-23); Calcium 8.7 mg/dL (8.5-10.5); Carbon Dioxide 27 mmol/L (22-29); Chloride 104 mmol/L (98-107); Globulin 1.9 g/dL (1.3-4.6); Glomerular Filtration Rate 113.5 mL/min (90-130); Glucose 146 mg/dL (65-115); Osmolality Calculated 291 mOsm/kg (285-295); Sodium 140 mmol/L (136-145); Total Bilirubin 0.4 mg/dL (0.15-1.2)
[2022-09-20 08:53] LABS: Slide Review Slide Review Perform
[2022-09-20 08:54] LABS: Absolute Eosinophils 0.2 10^3/cmm (0.0-0.7); Absolute Neutrophil 3.8 10^3/cmm (1.4-6.5); Absolute Segmented Neutrophil 3.8 10/cmm (1.6-7.1); Eosinophils 1 %; Lymphocytes 65 %; Lymphocytes Absolute 19.3 10^3/cmm (1.2-3.4); Monocytes Absolute 0.2 10^3/cmm (0.1-0.6); Platelet Estimate Normal (Normal); Segmented Neutrophils 16 %; Total Cells Counted 100 (0-100)
== END 2022-09-30 23:59 | disposition home or self-care (01) ==
PROVIDERS: PCP Family Medicine; Visit Provider Internal Medicine Hematology & Oncology
DX: C91.10 Chronic lymphocytic leukemia of B-cell type not having achieved remission (principal)
CPT/HCPCS: 36415; 80053; 85007; 85025

== ENCOUNTER 2022-10-25 08:00 | Oncology outpatient (recurring) (ONCR) | payer BC, SELFPAY ==
[2022-10-25 07:55] VITALS: BP 110/71; PULSE 73; RESP 16; TEMP 37.3; O2SAT 97
[2022-10-25 08:34] LABS: Hematocrit 44.4 % (37-53); Mean Corpuscular HGB Conc 31.8 g/dL (30-55); Mean Corpuscular Hemoglobin 30.2 pg (27-33); Mean Corpuscular Volume 95.1 fl (82-101); Mean Platelet Volume 11.8 fL (7.4-10.4); Platelet Count 210 10^3/cmm (157-399); Red Blood Count 4.67 10^6/uL (3.85-5.65); Red Cell Distribution Width 13.7 % (12.1-15.1); White Blood Count 19.71 10^3/uL (3.29-11.43)
[2022-10-25 09:06] LABS: Slide Review Slide Review Perform
[2022-10-25 09:07] LABS: Absolute Eosinophils 0.2 10^3/cmm (0.0-0.7); Absolute Neutrophil 4.9 10^3/cmm (1.4-6.5); Absolute Segmented Neutrophil 4.9 10/cmm (1.6-7.1); Eosinophils 1 %; Lymphocytes 61 %; Lymphocytes Absolute 14.4 10^3/cmm (1.2-3.4); Monocytes Absolute 0.2 10^3/cmm (0.1-0.6); Platelet Estimate Normal (Normal); Segmented Neutrophils 25 %; Total Cells Counted 100 (0-100)
== END 2022-10-31 23:59 | disposition home or self-care (01) ==
PROVIDERS: Nurse Practitioner Family; PCP Family Medicine; Visit Provider Internal Medicine Hematology & Oncology
DX: C91.10 Chronic lymphocytic leukemia of B-cell type not having achieved remission (principal)
CPT/HCPCS: 36415; 85007; 85025

== ENCOUNTER 2022-11-27 07:58 | Day surgery (SDC) | payer BC, SELFPAY ==
[2022-11-25 10:29] VITALS: BMI 23.0
[2022-11-27 08:15] VITALS: BP 110/79; PULSE 103; RESP 18; TEMP 36.7; O2SAT 98; BMI 23.0
--- NOTE | 2022-11-27 08:20 | P.ANESASSM_ITS ---
Pre-Anesthetic Assessment Height/Weight: Height 1.8 m Weight 74.843 kg Preop Diagnosis: preventative screening Operation Date: 11/27/22 09:00 Proposed Procedures p Colonoscopy 14280,Z12.11(Not Applicable) - Eb Dang DO Familial anesthetic complications: none Was Beta Rashad taken within 24 hours: N/A Was Clonidine taken within 24 hours: N/A Social No alcohol and No tobacco (Smokes marijuana) Exam alert, oriented x 3, clear to auscultation bilaterally and regular rate & rhythm Airway Submandibular: within normal limits Cervical ROM: within normal limits Mallampati: Class I Dentition: chipped and other (Multiple caries, multiple missing on lower) History/ROS No significant history except as noted Pulmonary Cough (summer allergies) CV/HEM Leukemia None reported Hepatic None reported GI None reported Metabolic None reported Musc/skel Weakness (generalized) Neuropsych Anxiety, Cerebrovascular Accident and Deficit (memory) subdural hematoma with history of jarrell hole. Anesthetic Plan ASA status: 3 Anesthesia: MAC Risk of > 500 ml blood loss (7ml/kg in children): No Medications/Allergies Home Medications Medication Instructions Recorded Confirmed Last Taken Type acetaminophen 325 mg tablet 650 mg PO DAILY PRN pain 07/11/21 11/25/22 11/23/22 History (Tylenol) fluticasone propionate 50 1 spray intranasal DAILY 09/12/21 11/25/22 11/18/22 History mcg/actuation nasal spray,suspension (Flonase Allergy Relief) diphenhydramine HCl 25 mg tablet 25 mg PO .Hs PRN Allergy Symptoms 11/28/21 11/25/22 1 Month Ago History (Benadryl Allergy) ~10/25/22 melatonin 3 mg capsule 10 mg PO BEDTIME 08/23/22 11/25/22 11/24/22 History acalabrutinib maleate 100 mg tablet 100 mg PO Q12H #56 tabs 10/22/22 11/27/22 11/26/22 Rx allopurinol 100 mg tablet 100 mg feeding tube BID 11/25/22 11/25/22 11/25/22 History Allergies Allergy/AdvReac Type Severity Reaction Status Date / Time No Known Allergies Allergy Verified 10/25/22 09:15 [facility] Anesthesia Medical History (Updated 11/27/22 @ 08:32 by Eb Dang DO) Seasonal allergies Surgical History (Updated 11/27/22 @ 08:32 by Eb Dang DO) History of hernia repair Hx laparoscopic cholecystectomy Age 14 Hx of colonoscopy with polypectomy 6-7 yrs ago Family History Family/Other Cancer 2 aunts - Bone marrow cancer Uncle with stomach cancer Aunt stomach cancer Father Diabetes Hyperlipidemia Hypertension Denies family history of CAD (coronary artery disease) Clotting disorder Dementia Psychiatric illness Chronic kidney disease (CKD) Suicide Anesthesia complication Bleeding disorder Lung disease Stroke Social History Smoking and tobacco status: never smoked Alcohol intake: current Alcohol intake frequency: holidays/special occasions only Substance/Drug Use: current Data Anesthesia Cardiac Studies: No Data to Display
[2022-11-27] MEDS: sodium chloride 0.9% 1,000 ML 30 ML IV (08:27)
--- NOTE | 2022-11-27 08:32 | PM.HP ---
Providers/Chief Complaint Primary Care Provider: Trenton Willard DO Chief Complaint: Z12.11 History of Present Illness Phuc Wood is a 62 year old male Review of Systems General: Reports: 10 or more systems reviewed and unremarkable except in HPI and below Medications/Allergies Home Medications Medication Instructions Recorded Confirmed Last Taken Type acetaminophen 325 mg tablet 650 mg PO DAILY PRN pain 07/11/21 11/25/22 11/23/22 History (Tylenol) fluticasone propionate 50 1 spray intranasal DAILY 09/12/21 11/25/22 11/18/22 History mcg/actuation nasal spray,suspension (Flonase Allergy Relief) diphenhydramine HCl 25 mg tablet 25 mg PO .Hs PRN Allergy Symptoms 11/28/21 11/25/22 1 Month Ago History (Benadryl Allergy) ~10/25/22 melatonin 3 mg capsule 10 mg PO BEDTIME 08/23/22 11/25/22 11/24/22 History acalabrutinib maleate 100 mg tablet 100 mg PO Q12H #56 tabs 10/22/22 11/27/22 11/26/22 Rx allopurinol 100 mg tablet 100 mg feeding tube BID 11/25/22 11/25/22 11/25/22 History Allergies Allergy/AdvReac Type Severity Reaction Status Date / Time No Known Allergies Allergy Verified 10/25/22 09:15 PFSH Acute PFSH: Medical History (Updated 11/27/22 @ 08:32 by Eb Dang DO) Seasonal allergies Surgical History (Updated 11/27/22 @ 08:32 by Eb Dang DO) History of hernia repair Hx laparoscopic cholecystectomy Age 14 Hx of colonoscopy with polypectomy 6-7 yrs ago Family History Family/Other Cancer 2 aunts - Bone marrow cancer Uncle with stomach cancer Aunt stomach cancer Father Diabetes Hyperlipidemia Hypertension Denies family history of CAD (coronary artery disease) Clotting disorder Dementia Psychiatric illness Chronic kidney disease (CKD) Suicide Anesthesia complication Bleeding disorder Lung disease Stroke Social History Smoking and tobacco status: never smoked Alcohol intake: current Alcohol intake frequency: holidays/special occasions only Substance/Drug Use: current Vitals/I&O/Wt Last Vital Signs Temp 98.1 F 11/27/22 08:15 Pulse 103 H 11/27/22 08:15 Resp 18 11/27/22 08:15 BP 110/79 11/27/22 08:15 Pulse Ox 98 11/27/22 08:15 O2 Del Method Room Air 11/27/22 08:15 Weight last 48 hrs Weight 165 lb Weight 165 lb A&P Assessment and plan (1) Colon cancer screening: Plan Colonoscopy Attestations Medical Necessity Statement*: Home Coding Level of Care Code Acute Code for Chg Fwd Diagnoses Colon cancer screening Z12.11
[2022-11-27 08:56] VITALS: BP 91/71; O2SAT 99
[2022-11-27 09:04] VITALS: BP 98/74; PULSE 92; RESP 16; O2SAT 93
[2022-11-27 09:09] VITALS: BP 100/76; PULSE 81; RESP 18; O2SAT 96
--- NOTE | 2022-11-27 16:35 | ANE.PACU2 ---
Inpatient post-anesthesia follow up: Airway intact: Yes Vital signs: Temperature 98.1 F Pulse Rate 81 Respiratory Rate 18 Blood Pressure 100/76 Pulse Oximetry 96 Oxygen Delivery Me thod Room Air Oxygen Flow Rate 4 Fraction of Inspir ed Oxygen Hydration adequate: Yes Nausea and vomiting: No Pain level: 2 Mental status: Baseline
== END 2022-11-27 09:30 | disposition home or self-care (01) ==
PROVIDERS: PCP Family Medicine; Visit Provider Surgery
PROC: 0DJD8ZZ Inspection of Lower Intestinal Tract, Via Natural or Artificial Opening Endoscopic (ICD-10-PCS; CPT 45378; principal; 2022-11-27 09:00)
DX: Z12.11 Encounter for screening for malignant neoplasm of colon (principal); D12.3 Benign neoplasm of transverse colon; D12.5 Benign neoplasm of sigmoid colon
CPT/HCPCS: 45385; 88305; J2371; J2704; J7030

== ENCOUNTER 2023-01-02 07:11 | Oncology outpatient (recurring) (ONCR) | payer BC, SELFPAY ==
[2023-01-02 07:46] VITALS: BP 108/71; PULSE 76; TEMP 36.8; O2SAT 98
[2023-01-02 07:56] LABS: Hematocrit 45.9 % (37-53); Mean Corpuscular HGB Conc 31.6 g/dL (30-55); Mean Corpuscular Hemoglobin 29.9 pg (27-33); Mean Corpuscular Volume 94.6 fl (82-101); Mean Platelet Volume 11.7 fL (7.4-10.4); Platelet Count 231 10^3/cmm (157-399); Red Blood Count 4.85 10^6/uL (3.85-5.65); Red Cell Distribution Width 13.9 % (12.1-15.1); White Blood Count 17.93 10^3/uL (3.29-11.43)
[2023-01-02 08:13] LABS: Alanine Aminotransferase 12 U/L (0-41); Albumin Level 4.4 g/dL (3.5-5.2); Alkaline Phosphatase 67 U/L (40-130); Anion Gap 10.3 (5-19); Aspartate Amino Transferase 12 U/L (0-40); Blood Urea Nitrogen 10 mg/dL (8-23); Calcium 9.2 mg/dL (8.5-10.5); Carbon Dioxide 31 mmol/L (22-29); Chloride 101 mmol/L (98-107); Globulin 1.9 g/dL (1.3-4.6); Glomerular Filtration Rate 113.5 mL/min (90-130); Glucose 152 mg/dL (65-115); Osmolality Calculated 288 mOsm/kg (285-295); Potassium 4.3 mmol/L (3.5-5.1); Sodium 138 mmol/L (136-145); Total Bilirubin 0.4 mg/dL (0.15-1.2); Total Protein 6.3 g/dL (6.6-8.7)
[2023-01-02 08:51] LABS: Slide Review Slide Review Perform; Total Cells Counted 100 (0-100)
[2023-01-02 08:58] LABS: Absolute Segmented Neutrophil 5.6 10/cmm (1.6-7.1); Lymphocytes 43 %; Monocytes Absolute 0.5 10^3/cmm (0.1-0.6); Segmented Neutrophils 31 %
[2023-01-02 08:59] LABS: Absolute Eosinophils 0.2 10^3/cmm (0.0-0.7); Absolute Neutrophil 5.6 10^3/cmm (1.4-6.5); Eosinophils 1 %; Giant Platelets 3+; Lymphocytes Absolute 11.7 10^3/cmm (1.2-3.4); Platelet Estimate Normal (Normal)
== END 2023-01-30 23:59 | disposition home or self-care (01) ==
PROVIDERS: Nurse Practitioner Family; PCP Family Medicine; Visit Provider Internal Medicine Hematology & Oncology
DX: C91.10 Chronic lymphocytic leukemia of B-cell type not having achieved remission (principal); Z79.899 Other long term (current) drug therapy
CPT/HCPCS: 36415; 80053; 85007; 85025

== ENCOUNTER 2023-02-06 09:13 | Oncology outpatient (recurring) (ONCR) | payer BC, SELFPAY ==
[2023-02-06 10:00] VITALS: BP 113/76; PULSE 64; RESP 16; TEMP 37.2; O2SAT 94
[2023-02-06 10:09] LABS: Basophils # 0.2 10^3/uL (0.0-0.1); Basophils % 1.1 %; Eosinophils # 0.2 10^3/uL (0.0-0.8); Lymphocytes # 11.4 10^3/uL (0.8-4.8); Lymphocytes % 60.8 %; Mean Corpuscular HGB Conc 31.2 g/dL (30-55); Mean Corpuscular Hemoglobin 29.8 pg (27-33); Mean Corpuscular Volume 95.3 fl (82-101); Mean Platelet Volume 11.2 fL (7.4-10.4); Monocytes # 0.7 10^3/uL (0.2-0.9); Monocytes % 3.7 %; Neutrophils # 6.02 10^3/uL (1.8-7.7); Neutrophils % 32.2 %; Nucleated Red Blood Cells % 0 %; Platelet Count 260 10^3/cmm (157-399); Red Blood Count 5.14 10^6/uL (3.85-5.65); Red Cell Distribution Width 13.5 % (12.1-15.1); White Blood Count 18.68 10^3/uL (3.29-11.43)
[2023-02-06 10:25] LABS: Alanine Aminotransferase 13 U/L (0-41); Albumin Level 4.4 g/dL (3.5-5.2); Alkaline Phosphatase 69 U/L (40-130); Anion Gap 13.3 (5-19); Aspartate Amino Transferase 15 U/L (0-40); Blood Urea Nitrogen 8 mg/dL (8-23); Calcium 9.2 mg/dL (8.5-10.5); Carbon Dioxide 28 mmol/L (22-29); Chloride 103 mmol/L (98-107); Creatinine Clr Calc Pharmacy 111.4661; Globulin 2.4 g/dL (1.3-4.6); Glomerular Filtration Rate 113.5 mL/min (90-130); Glucose 121 mg/dL (65-115); Osmolality Calculated 290 mOsm/kg (285-295); Potassium 4.3 mmol/L (3.5-5.1); Sodium 140 mmol/L (136-145); Total Bilirubin 0.4 mg/dL (0.15-1.2); Total Protein 6.8 g/dL (6.6-8.7)
[2023-02-06 11:03] LABS: Slide Review Slide Review Perform
== END 2023-03-02 23:59 | disposition home or self-care (01) ==
PROVIDERS: Internal Medicine Medical Oncology; PCP Family Medicine; Visit Provider Internal Medicine Hematology & Oncology
DX: C91.10 Chronic lymphocytic leukemia of B-cell type not having achieved remission (principal)
CPT/HCPCS: 36415; 80053; 85025

== ENCOUNTER 2023-02-17 11:04 | Outpatient (CLI) | payer BC, SELFPAY ==
--- NOTE | 2023-02-17 12:30 | CT_ITS ---
WS: [id number] CT CHEST, ABDOMEN, AND PELVIS TECHNIQUE: Contrast-enhanced CT of the chest, abdomen, and pelvis with coronal and sagittal reformatt ed images. CLINICAL INFORMATION: restaging COMPARISON: CT chest abdomen pelvis 07/04/2021 DLP: 636.[address] scans at [facility] use at least one of these dose optimization techniques: automated e xposure control; mA and/or kV adjustment per patient size (includes targeted exams where dose is matc hed to clinical indication); or iterative reconstruction. CT CHEST: Moderate chronic emphysematous changes. No acute pulmonary infiltrates. No focal pneumonia or pleural fluid. Enlarged lobulated RIGHT thyroid extends into the anterior mediastinum. Mild RIGHT to LEFT ma ss effect on the trachea. This is similar to previous. Normal caliber thoracic aorta. No mediastinal or hilar lymphadenopathy. No axillary lymphadenopathy. Hypertrophic changes thoracic spine. Mild thor acic curve. No suspicious pulmonary parenchymal opacities. CT ABDOMEN AND PELVIS: Diffuse fatty filtration of the liver. Cholecystectomy clips. Intrahepatic biliary duct dilatation wi th dilatation of the common bile duct similar to previous likely physiologic postcholecystectomy. Sta ble LEFT adrenal adenoma measuring 3.5 cm. Smaller RIGHT adrenal adenomas stable. Normal pancreatic enhancement. Portal vein and splenic vein are patent. Normal spleen. Normal GE junction. Normal calib er abdominal aorta. Mild aortic calcification. Previously described lymphadenopathy has essentially resolved. A few residual slightly prominent ingu inal and iliac chain lymph nodes although significantly improved compared to previous Atrophic RIGHT kidney. Duplicated LEFT collecting system. No hydronephrosis. Small bilateral renal cy sts. Exophytic RIGHT renal cyst is stable measuring 2.1 cm. Markedly enlarged heterogeneously enhanci ng nodular prostate measuring 5.3 cm. No evidence of bladder outlet obstruction. Thickening of the se john vesicles. Normal sigmoid. No evidence of high-grade small or large bowel obstruction. IMPRESSION: 1. Previously described lymphadenopathy in the chest abdomen pelvis has essentially resolved. 2. A few residual slightly prominent iliac chain and inguinal lymph nodes although nearly resolved c ompared to previous 3. Markedly enlarged prostate with evidence of bladder outlet obstruction. Enhancing nodular prostat e measures 5.3 cm. Recommend correlation PSA. 4. Unchanged atrophic LEFT kidney. 5. Unchanged bilateral adrenal adenomas LEFT greater than RIGHT. 6. Cholecystectomy with stable intrahepatic bile duct dilatation. 7. No other acute findings.
[2023-02-17] MEDS: iohexol 350 mg/mL 500 mL Btl (per mL) PO (12:32)
[2023-02-17] MEDS: iohexol 350 mg/mL 500 mL Btl (per mL) IV (12:32)
== END 2023-02-17 11:05 | disposition home or self-care (01) ==
LOC: RAD 11:04
PROVIDERS: PCP Family Medicine; Visit Provider Nurse Practitioner Family
DX: C91.10 Chronic lymphocytic leukemia of B-cell type not having achieved remission (principal); N40.1 Benign prostatic hyperplasia with lower urinary tract symptoms; N13.8 Other obstructive and reflux uropathy; D35.02 Benign neoplasm of left adrenal gland; D35.01 Benign neoplasm of right adrenal gland; Z90.49 Acquired absence of other specified parts of digestive tract
CPT/HCPCS: 71260; 74177; Q9967

== ENCOUNTER 2023-03-13 10:11 | Oncology outpatient (recurring) (ONCR) | payer MEDICARE, BC, SELFPAY ==
[2023-03-13 10:45] VITALS: BP 114/82; PULSE 88; RESP 16; TEMP 37.2; O2SAT 98
[2023-03-13 11:29] LABS: Prostate Specific Antigen 0.596 ng/mL (0-4)
== END 2023-04-02 23:59 | disposition home or self-care (01) ==
PROVIDERS: Nurse Practitioner Family; PCP Family Medicine; Visit Provider Internal Medicine Medical Oncology
DX: N40.0 Benign prostatic hyperplasia without lower urinary tract symptoms (principal)
CPT/HCPCS: 36415; 84153

== ENCOUNTER 2023-05-12 09:40 | Oncology outpatient (recurring) (ONCR) | payer MEDICARE, BC, OTHER, SELFPAY ==
[2023-05-12 10:04] LABS: Basophils # 0.2 10^3/uL (0.0-0.1); Basophils % 0.8 %; Eosinophils # 0.2 10^3/uL (0.0-0.8); Eosinophils % 1.3 %; Hematocrit 44.8 % (37-53); Lymphocytes # 11.3 10^3/uL (0.8-4.8); Lymphocytes % 61.5 %; Mean Corpuscular HGB Conc 31.5 g/dL (30-55); Mean Corpuscular Hemoglobin 29.8 pg (27-33); Mean Corpuscular Volume 94.7 fl (82-101); Mean Platelet Volume 11.6 fL (7.4-10.4); Monocytes # 0.9 10^3/uL (0.2-0.9); Monocytes % 4.9 %; Neutrophils % 31.1 %; Nucleated Red Blood Cells % 0 %; Platelet Count 239 10^3/cmm (157-399); Red Blood Count 4.73 10^6/uL (3.85-5.65); Red Cell Distribution Width 13.2 % (12.1-15.1); White Blood Count 18.34 10^3/uL (3.29-11.43)
[2023-05-12 10:22] LABS: Chloride 104 mmol/L (98-107); Potassium 4.3 mmol/L (3.5-5.1); Sodium 140 mmol/L (136-145)
[2023-05-12 10:34] LABS: Alanine Aminotransferase 12 U/L (0-41); Albumin Level 4.1 g/dL (3.5-5.2); Alkaline Phosphatase 63 U/L (40-130); Anion Gap 12.4 (5-19); Aspartate Amino Transferase 14 U/L (0-40); Blood Urea Nitrogen 9 mg/dL (8-23); Calcium 8.8 mg/dL (8.5-10.5); Carbon Dioxide 28 mmol/L (22-29); Globulin 2.2 g/dL (1.3-4.6); Glomerular Filtration Rate 135.2 mL/min (90-130); Glucose 126 mg/dL (65-115); Osmolality Calculated 292 mOsm/kg (285-295); Total Bilirubin 0.5 mg/dL (0.15-1.2); Total Protein 6.3 g/dL (6.6-8.7)
[2023-05-12 10:41] LABS: Slide Review Slide Review Perform
== END 2023-06-01 23:59 | disposition home or self-care (01) ==
PROVIDERS: Nurse Practitioner Family; PCP Family Medicine; Visit Provider Internal Medicine Medical Oncology
DX: N40.0 Benign prostatic hyperplasia without lower urinary tract symptoms (principal); C91.10 Chronic lymphocytic leukemia of B-cell type not having achieved remission; Z79.899 Other long term (current) drug therapy
CPT/HCPCS: 36415; 80053; 85025; 99214

== ENCOUNTER 2023-07-10 08:36 | Emergency (ER) | payer MEDICARE, BC, SELFPAY ==
[2023-07-10 08:42] VITALS: BP 119/72; PULSE 104; RESP 18; TEMP 36.6; O2SAT 97
[2023-07-10] MEDS: ondansetron 2 mg/ML SDV 2 mL 4 MG IVP (08:54)
--- NOTE | 2023-07-10 08:54 | ED_ITS ---
HPI - Nausea/Vomiting/Diarrhea 2 General: Chief complaint: Nausea/Vomiting/Diarrhea Stated complaint: vomiting Time Seen by Provider: 07/10/23 08:40 Source: patient Mode of arrival: ambulatory Limitations: no limitations History of Present Illness: 63-year-old male with a history of CLL h e is on oral chemo he states that starting last night he has been having vomiting along with diarrhea states he had multiple episodes of vomiting. He denies any abdominal pain to me he has states he had some burning with his vomiting. Denies any fevers denies any worse improved factors Associated nausea: Yes Associated symtoms: Reports nausea; Denies chest pain, dysuria or headache(s) Review of Systems 2 Const: Denies: fever(s), chills, body aches or change in appetite ENMT: Denies: throat pain or dental pain Card: Denies: chest pain Resp: Denies: dyspnea GI: Reports: abdominal pain, nausea, vomiting and diarrhea : Denies: dysuria Musc: Denies: neck pain or back pain Skin/Breast: Denies: rash Neuro: Denies: headache(s) PFSH ED 2 PFSH: Medical History Seasonal allergies Surgical History History of hernia repair Hx laparoscopic cholecystectomy Age 14 Hx of colonoscopy with polypectomy 6-7 yrs ago Family History Family/Other Cancer 2 aunts - Bone marrow cancer Uncle with stomach cancer Aunt stomach cancer Father Diabetes Hyperlipidemia Hypertension Denies family history of CAD (coronary artery disease) Clotting disorder Dementia Psychiatric illness Chronic kidney disease (CKD) Suicide Anesthesia complication Bleeding disorder Lung disease Stroke Social History Smoking and tobacco/nicotine status: never used tobacco/nicotine Second hand smoke exposure: Yes (spouse smokes) Alcohol intake: current Alcohol intake frequency: holidays/special occasions only Substance/Drug Use: current Physical Exam 2 Const: COMMON NORMALS: no acute distress, patient oriented x3 and healthy appearing HENMT: COMMON NORMALS: normocephalic and atraumatic HEAD & SCALP: n ormocephalic and atraumatic Eye: COMMON NORMALS: Equal, round and reactive pupils present and EOMs intact bilaterally PUPIL: Yes Equal, round and reactive pupils present Neck/C-Spine: COMMON NORMALS: full ROM and supple Chest: COMMONS NORMALS: normal inspection of the chest and normal palpation of entire chest wall Resp: COMMON NORMALS: normal respiratory effort, No retractions, No use of accessory muscles and clear to auscultation bilaterally AUSCULTATION: clear to auscultation bilaterally Cardio: COMMON NORMALS: regular rate, regular rhythm and No murmurs present (Cardio) RATE: regular rate RHYTHM: regular rhythm GI: COMMON NORMALS: Normal to inspection, nondistended, normoactive bowel sounds present, Soft to palpation, non-tender and no masses PALPATION: Yes Soft to palpation Extremity: COMMON NORMALS: normal to inspection and full ROM Neuro: COMMON NORMALS: patient oriented x3, moves all extremities and no focal motor deficits Psych: COMMON NORMALS: mental status grossly normal, Normal thought process present and cooperative THOUGHT PROCESS: Normal thought process present Skin: COMMON NORMALS: no rashes or lesions noted and no wounds GENERAL SKIN EXAM: no rashes or lesions noted Course 2 Vital Signs: Vital signs: Vital Signs Temperature 97.8 F 07/10/23 08:42 Pulse Rate 93 07/10/23 11:25 Respiratory Rate 18 07/10/23 11:25 Blood Pressure 101/71 07/10/23 11:25 Pulse Oximetry 95 07/10/23 11:25 Oxygen Delivery Me thod Room Air 07/10/23 11:25 MDM - Nausea/Vomiting/Diarrhea Medical Decision Making Patient presents with vomiting likely gastroenteritis blood work CT scan here is normal he does have elevated white count likely from his CLL. Will prescribe Zofran he does feel improved here follow-up with PCP return if worsening Medical Records I reviewed the patient's medical records. Lab Data I reviewed the patient's lab results. 07/10/23 08:46 07/10/23 08:46 Radiology Impressions Abdomen/Pelvis CT 07/10/23 09:52 IMPRESSION: 1. No GI tract obstruction. There is increased fluid in the cecum which may be related to gastroenteritis. 2. Small mesenteric, retroperitoneal and pelvic lymph nodes. These lymph nodes are very slightly more prominent as compared to 02/17/2023. The slight increase in size may not be significant. 3. No ascites. 4. Prior cholecystectomy and appendectomy. 5. Atrophic scarred RIGHT kidney. Laboratory Results WBC 23.61 10^3/uL (3.29-11.43) H 07/10/23 08:46 RBC 5.12 10^6/uL (3.85-5.65) 07/10/23 08:46 Hgb 15.40 g/dL (11.27-16.99) 07/10/23 08:46 Hct 47.5 % (37-53) 07/10/23 08:46 MCV 92.8 fl (82-101) 07/10/23 08:46 MCH 30.1 pg (27-33) 07/10/23 08:46 MCHC 32.4 g/dL (30-55) 07/10/23 08:46 RDW 12.8 % (12.1-15.1) 07/10/23 08:46 Plt Count 245 10^3/cmm (157-399) 07/10/23 08:46 MPV 11.5 fL (7.4-10.4) H 07/10/23 08:46 Neut % (Auto) 50.4 % 07/10/23 08:46 Lymph % (Auto) 44.6 % 07/10/23 08:46 Wilkes % (Auto) 4.0 % 07/10/23 08:46 Eos % (Auto) 0.1 % 07/10/23 08:46 Baso % (Auto) 0.5 % 07/10/23 08:46 Neut # (Auto) 11.91 10^3/uL (1.8-7.7) H 07/10/23 08:46 Lymph # (Auto) 10.5 10^3/uL (0.8-4.8) H 07/10/23 08:46 Wilkes # (Auto) 0.9 10^3/uL (0.2-0.9) 07/10/23 08:46 Eos # (Auto) 0.0 10^3/uL (0.0-0.8) 07/10/23 08:46 Baso # (Auto) 0.1 10^3/uL (0.0-0.1) 07/10/23 08:46 Nucleated RBC % (auto) 0 % 07/10/23 08:46 Nucleated RBCs # 0.0 /100WBC 07/10/23 08:46 Sodium 136 mmol/L (136-145) 07/10/23 08:46 Potassium 4.0 mmol/L (3.5-5.1) 07/10/23 08:46 Chloride 99 mmol/L (98-107) 07/10/23 08:46 Carbon Dioxide 26 mmol/L (22-29) 07/10/23 08:46 Anion Gap 15.0 (5-19) 07/10/23 08:46 BUN 15 mg/dL (8-23) 07/10/23 08:46 Creatinine 0.8 mg/dL (0.7-1.2) 07/10/23 08:46 GFR Calculation 97.0 mL/min (90-130) 07/10/23 08:46 Glucose 120 mg/dL (65-115) H 07/10/23 08:46 Calculated Osmolality 284 mOsm/kg (285-295) L 07/10/23 08:46 Calcium 9.1 mg/dL (8.5-10.5) 07/10/23 08:46 Magnesium 1.7 mg/dL (1.7-2.3) 07/10/23 08:46 Total Bilirubin 0.7 mg/dL (0.15-1.2) 07/10/23 08:46 AST 26 U/L (0-40) 07/10/23 08:46 ALT 40 U/L (0-41) 07/10/23 08:46 Alkaline Phosphatase 101 U/L (40-130) 07/10/23 08:46 Total Protein 7.1 g/dL (6.6-8.7) 07/10/23 08:46 Albumin 4.3 g/dL (3.5-5.2) 07/10/23 08:46 Globulin 2.8 g/dL (1.3-4.6) 07/10/23 08:46 Lipase 48 U/L (13-60) 07/10/23 08:46 All radiology interpretation(s) finalized by discharge Discharge Plan Discharge Patient Disposition: Home Clinical Impression: Vomiting Condition: Stable Prescriptions: New ondansetron 4 mg tablet,disintegrating 4 mg PO Q6H PRN (Reason: nausea and vomiting) Qty: 14 0RF No Action diphenhydramine HCl [Benadryl Allergy] 25 mg tablet 25 mg PO .Hs PRN (Reason: Allergy Symptoms) acalabrutinib maleate 100 mg tablet 100 mg PO Q12H Qty: 56 0RF ibuprofen 200 mg Tablet 200 mg PO Q6H PRN (Reason: Pain) melatonin 10 mg Tablet,Chewable 10 mg PO BEDTIME Discharge Orders: Discharge ED (Routine); Ordered 07/10/23 Ordered By: Jennifer Carney Referrals: Trenton Willard, [Primary Care Provider] - Discharge Diet: Advance as tolerated Discharge Activity: Resume usual activity Patient Instructions: Acute Nausea and Vomiting (ED) Coding Level of Care Code ED Dredge Runner for Christine Garcia
[2023-07-10] MEDS: sodium chloride 0.9% 1,000 ML 999 ML IV (08:55)
[2023-07-10 08:56] LABS: Basophils # 0.1 10^3/uL (0.0-0.1); Basophils % 0.5 %; Eosinophils % 0.1 %; Hematocrit 47.5 % (37-53); Lymphocytes # 10.5 10^3/uL (0.8-4.8); Lymphocytes % 44.6 %; Mean Corpuscular HGB Conc 32.4 g/dL (30-55); Mean Corpuscular Hemoglobin 30.1 pg (27-33); Mean Corpuscular Volume 92.8 fl (82-101); Mean Platelet Volume 11.5 fL (7.4-10.4); Monocytes # 0.9 10^3/uL (0.2-0.9); Neutrophils # 11.91 10^3/uL (1.8-7.7); Neutrophils % 50.4 %; Nucleated Red Blood Cells % 0 %; Platelet Count 245 10^3/cmm (157-399); Red Blood Count 5.12 10^6/uL (3.85-5.65); Red Cell Distribution Width 12.8 % (12.1-15.1); White Blood Count 23.61 10^3/uL (3.29-11.43)
[2023-07-10 09:09] LABS: Alanine Aminotransferase 40 U/L (0-41); Albumin Level 4.3 g/dL (3.5-5.2); Alkaline Phosphatase 101 U/L (40-130); Aspartate Amino Transferase 26 U/L (0-40); Blood Urea Nitrogen 15 mg/dL (8-23); Calcium 9.1 mg/dL (8.5-10.5); Carbon Dioxide 26 mmol/L (22-29); Chloride 99 mmol/L (98-107); Creatinine Clr Calc Pharmacy 97.2432; Globulin 2.8 g/dL (1.3-4.6); Glucose 120 mg/dL (65-115); Lipase 48 U/L (13-60); Magnesium 1.7 mg/dL (1.7-2.3); Osmolality Calculated 284 mOsm/kg (285-295); Sodium 136 mmol/L (136-145); Total Bilirubin 0.7 mg/dL (0.15-1.2); Total Protein 7.1 g/dL (6.6-8.7)
[2023-07-10 09:40] LABS: Slide Review Slide Review Perform
--- NOTE | 2023-07-10 09:52 | CT_ITS ---
WS: [id number] CT ABDOMEN AND PELVIS WITH CONTRAST HISTORY: Vomiting and abdominal pain for 2 days. TECHNIQUE: Imaging performed of the abdomen and pelvis with IV contrast. Single phase imaging of the abdomen. Coronal and sagittal reformats are submitted. All CT scans at [facility] use at [address] one of these dose optimization techniques: automated exposure control; mA and/or kV adjustment per patient size (includes targeted exams where dose is matched to clinical indication); or iterative re construction. IV CONTRAST: Omnipaque 350; 100 mL IV. Oral contrast: No DLP: 414.10 mGy.cm COMPARISON: 02/17/2023, 07/04/2021 Lower thorax: Subsegmental atelectasis RIGHT middle lobe. Heart is normal size. No hiatal hernia. Liver/biliary system: Normal size liver. Intrahepatic and extrahepatic common duct dilatation is stab le. Likely related to the cholecystectomy. Gallbladder: Prior cholecystectomy. Pancreas: Normal size pancreas and pancreatic duct. No adjacent inflammation. Spleen: Normal size spleen. No mass or infarct. Adrenal glands: Bilateral low-attenuation adrenal masses, LEFT greater than RIGHT consistent with isaac nomas. Right kidney: Atrophic RIGHT kidney with multiple areas of focal scarring. Exophytic cyst from the lo wer pole measures 1.7 cm. No obstruction. Left kidney: Normal size kidney. No obstruction. No mass. Aorta: Mild atherosclerosis with no aneurysm. Lymphadenopathy: RIGHT retrocrural lymph node 1.0 cm. Small shotty retroperitoneal lymph nodes. There are also additional scattered central mesenteric lymph nodes measuring up to 0.6 cm. Free fluid: None. GI tract: Nondistended stomach. No small bowel obstruction. No colon obstruction. Prior appendectomy. There is mild increased fluid in the cecum. Abdominal wall: Unremarkable abdominal wall. No hernia. Pelvis: Small bilateral inguinal lymph nodes. Small lymph nodes were noted on the prior CT also. The largest in the RIGHT groin is 1.3 cm. Small obturator lymph nodes. The largest is 1.5 cm on the RIGHT . Some of these lymph nodes are measuring slightly greater than on the prior study. Additional small but several lymph nodes along the iliac chains. Bones: Unremarkable. CT/CT abdomen pelvis w con* [id number] IMPRESSION: 1. No GI tract obstruction. There is increased fluid in the cecum which may be related to gastroenteritis. 2. Small mesenteric, retroperitoneal and pelvic lymph nodes. These lymph nodes are very slightly more prominent as compared to 02/17/2023. The slight increas e in size may not be significant. 3. No ascites. 4. Prior cholecystectomy and appendectomy. 5. Atrophic scarred RIGHT kidney.
[2023-07-10 10:20] VITALS: BP 120/68; PULSE 85; RESP 16; O2SAT 97
[2023-07-10] MEDS: iohexol 350 mg/mL 500 mL Btl (per mL) IV (10:50)
[2023-07-10 11:25] VITALS: BP 101/71; PULSE 93; RESP 18; O2SAT 95
[2023-07-10 11:49] VITALS: BP 106/71; PULSE 85; RESP 16; O2SAT 95
== END 2023-07-10 11:50 | disposition home or self-care (01) ==
PROVIDERS: Emergency Provider Emergency Medicine; PCP Family Medicine
DX: R11.11 Vomiting without nausea (principal); Z77.22 Contact with and (suspected) exposure to environmental tobacco smoke (acute) (chronic)
CPT/HCPCS: 74177; 80053; 83690; 83735; 85025; 96361; 96374; 99285; J2405; J7030; Q9967

== ENCOUNTER 2023-08-14 10:30 | Oncology outpatient (recurring) (ONCR) | payer MEDICARE, SELFPAY ==
[2023-08-04] MEDS: iohexol 350 mg/mL 500 mL Btl (per mL) PO (14:51)
--- NOTE | 2023-08-04 15:00 | CT_ITS ---
WS: [id number] CT CHEST, ABDOMEN AND PELVIS WITH CONTRAST HISTORY: Surveillance CLL. TECHNIQUE: Contiguous 5 mm axial imaging performed through the chest, abdomen and pelvis with IV cont rast, oral contrast has been provided. Coronal and sagittal reformats chest. Coronal and sagittal ref ormats through the abdomen and pelvis. All CT scans at [facility] use at least one of these d ose optimization techniques: automated exposure control; mA and/or kV adjustment per patient size (in cludes targeted exams where dose is matched to clinical indication); or iterative reconstruction. CONTRAST: Omnipaque 350; 100 mL IV. DLP: 591.11 mGy.cm COMPARISON: 07/10/2023, 02/17/[address]: Lungs are clear and well aerated. No pulmonary mass or nodule. No pneumonia. Linear scar is identified in the anterior RIGHT upper lobe. Heart size is normal. No pericardial or pleural effusio ns. No mediastinal or hilar adenopathy. Small axillary lymph nodes are stable. Mild atherosclerosis t horacic aorta. Normal size pulmonary artery. Enlarged RIGHT thyroid extends substernal, no change. Abdomen CT: Prior cholecystectomy. Mild central hepatic duct dilatation is similar to the prior exami nations. Normal liver. No mass. Normal spleen. No splenomegaly. Normal pancreas. Bilateral adrenal ad enomas are stable. Severe atrophy with cortical thinning and scarring RIGHT kidney is stable. The kid rosemary does still enhance. There is a small extrarenal pelvis on the RIGHT and a simple cyst. Normal siz e LEFT kidney. Mild atherosclerosis aorta. Stomach is well distended with oral contrast. No small bowel obstruction. Mild diffuse constipation. No colitis. No obstruction. Central upper abdominal mesenteric lymph node at 10 mm was not present on 02/17/2023. There are a few additional small mesenteric lymph nodes. No enlarging retroperitoneal lymph nodes. There are a few l ymph nodes along the iliac chains and into the inguinal regions which are not changed. Significant im provement since 07/04/2021 but very similar to 02/17/2023. Pelvic CT: Mild bladder wall thickening. Prostate gland enlargement. No free fluid. No destructive bone lesions. No new sclerotic or lytic lesions. CT/CT chest abdpel w/*[id number] IMPRESSION: 1. No mediastinal or hilar lymphadenopathy. No pneumonia. 2. There is a single mesenteric lymph node in the superior abdomen which is mo re prominent as compared to 02/17/2023 but significantly improved since 2. This lymph node was not necessarily apparent on 02/17/2023. The remaining me senteric, retroperitoneal and pelvic lymph nodes appear stable or improved. 3. Marked atrophy RIGHT kidney but the kidney still enhances. 4. Normal spleen. 5. Bilateral adrenal adenomas are stable. 6. Prior cholecystectomy
[2023-08-14 10:51] LABS: Hematocrit 46.5 % (37-53); Mean Corpuscular Hemoglobin 30.3 pg (27-33); Mean Corpuscular Volume 94.5 fl (82-101); Mean Platelet Volume 11.7 fL (7.4-10.4); Platelet Count 234 10^3/cmm (157-399); Red Blood Count 4.92 10^6/uL (3.85-5.65); Red Cell Distribution Width 13.2 % (12.1-15.1); White Blood Count 29.47 10^3/uL (3.29-11.43)
[2023-08-14 11:07] LABS: Alanine Aminotransferase 12 U/L (0-41); Albumin Level 4.1 g/dL (3.5-5.2); Alkaline Phosphatase 81 U/L (40-130); Anion Gap 12.4 (5-19); Aspartate Amino Transferase 20 U/L (0-40); Blood Urea Nitrogen 10 mg/dL (8-23); Carbon Dioxide 29 mmol/L (22-29); Chloride 100 mmol/L (98-107); Globulin 2.6 g/dL (1.3-4.6); Glomerular Filtration Rate 135.2 mL/min (90-130); Glucose 129 mg/dL (65-115); Osmolality Calculated 285 mOsm/kg (285-295); Potassium 4.4 mmol/L (3.5-5.1); Sodium 137 mmol/L (136-145); Total Bilirubin 0.5 mg/dL (0.15-1.2); Total Protein 6.7 g/dL (6.6-8.7)
[2023-08-14 11:34] LABS: Absolute Eosinophils 0.3 10^3/cmm (0.0-0.7); Absolute Segmented Neutrophil 8.3 10/cmm (1.6-7.1); Eosinophils 1 %; Lymphocytes 26 %; Lymphocytes Absolute 20.9 10^3/cmm (1.2-3.4); Segmented Neutrophils 28 %; Slide Review Slide Review Perform; Total Cells Counted 100 (0-100)
[2023-08-14 11:38] LABS: Absolute Neutrophil 8.3 10^3/cmm (1.4-6.5); Platelet Estimate Normal (Normal)
== END 2023-08-31 23:59 | disposition home or self-care (01) ==
PROVIDERS: Internal Medicine; PCP Family Medicine; Visit Provider Internal Medicine Medical Oncology
DX: C91.10 Chronic lymphocytic leukemia of B-cell type not having achieved remission; Z53.9 Procedure and treatment not carried out, unspecified reason; Z79.69 Long term (current) use of other immunomodulators and immunosuppressants
CPT/HCPCS: 36415; 71260; 74177; 80053; 85007; 85025; 99213; Q9967

== ENCOUNTER 2023-11-27 11:59 | Oncology outpatient (recurring) (ONCR) | payer MEDICARE, SELFPAY ==
[2023-11-27 12:39] LABS: Basophils # 0.3 10^3/uL (0.0-0.1); Basophils % 0.7 %; Eosinophils # 0.3 10^3/uL (0.0-0.8); Eosinophils % 0.7 %; Hematocrit 44.2 % (37-53); Lymphocytes # 32.2 10^3/uL (0.8-4.8); Lymphocytes % 78.7 %; Mean Corpuscular HGB Conc 31.7 g/dL (30-55); Mean Corpuscular Hemoglobin 29.5 pg (27-33); Mean Corpuscular Volume 93.2 fl (82-101); Mean Platelet Volume 11.3 fL (7.4-10.4); Monocytes # 1.7 10^3/uL (0.2-0.9); Neutrophils # 6.33 10^3/uL (1.8-7.7); Neutrophils % 15.5 %; Nucleated Red Blood Cells % 0 %; Platelet Count 227 10^3/cmm (157-399); Red Blood Count 4.74 10^6/uL (3.85-5.65); Red Cell Distribution Width 13.2 % (12.1-15.1)
[2023-11-27 12:57] LABS: Alanine Aminotransferase 10 U/L (0-41); Albumin Level 4.2 g/dL (3.5-5.2); Alkaline Phosphatase 77 U/L (40-130); Anion Gap 13.4 (5-19); Aspartate Amino Transferase 17 U/L (0-40); Blood Urea Nitrogen 10 mg/dL (8-23); Calcium 8.3 mg/dL (8.5-10.5); Carbon Dioxide 28 mmol/L (22-29); Chloride 108 mmol/L (98-107); Globulin 2.1 g/dL (1.3-4.6); Glomerular Filtration Rate 113.2 mL/min (90-130); Glucose 114 mg/dL (65-115); Osmolality Calculated 298 mOsm/kg (285-295); Potassium 5.4 mmol/L (3.5-5.1); Sodium 144 mmol/L (136-145); Total Bilirubin 0.4 mg/dL (0.15-1.2); Total Protein 6.3 g/dL (6.6-8.7)
[2023-11-27 13:10] LABS: White Blood Count 40.91 10^3/uL (3.29-11.43)
[2023-11-27 13:12] LABS: Slide Review Slide Review Perform
== END 2023-12-01 23:59 | disposition home or self-care (01) ==
PROVIDERS: Nurse Practitioner Family; PCP Family Medicine; Visit Provider Internal Medicine Medical Oncology
DX: C91.10 Chronic lymphocytic leukemia of B-cell type not having achieved remission (principal); Z79.69 Long term (current) use of other immunomodulators and immunosuppressants; E87.5 Hyperkalemia
CPT/HCPCS: 36415; 80053; 85025; 99214

== ENCOUNTER 2023-12-29 08:45 | Oncology outpatient (recurring) (ONCR) | payer MEDICARE, SELFPAY ==
[2023-12-04 09:22] LABS: Potassium 4.6 mmol/L (3.5-5.1)
[2023-12-29 08:50] LABS: Basophils # 0.1 10^3/uL (0.0-0.1); Basophils % 0.2 %; Eosinophils # 0.3 10^3/uL (0.0-0.8); Eosinophils % 0.6 %; Lymphocytes # 46.4 10^3/uL (0.8-4.8); Lymphocytes % 81.1 %; Mean Corpuscular HGB Conc 30.7 g/dL (30-55); Mean Corpuscular Hemoglobin 29.5 pg (27-33); Mean Corpuscular Volume 96.2 fl (82-101); Mean Platelet Volume 11.7 fL (7.4-10.4); Monocytes # 2.3 10^3/uL (0.2-0.9); Monocytes % 3.9 %; Neutrophils # 7.91 10^3/uL (1.8-7.7); Neutrophils % 13.8 %; Nucleated Red Blood Cells % 0 %; Platelet Count 222 10^3/cmm (157-399); Red Blood Count 4.68 10^6/uL (3.85-5.65); Red Cell Distribution Width 13.8 % (12.1-15.1)
[2023-12-29 09:07] LABS: White Blood Count 57.26 10^3/uL (3.29-11.43)
[2023-12-29 09:08] LABS: Slide Review Slide Review Perform
[2023-12-29 09:14] LABS: Alanine Aminotransferase 14 U/L (0-41); Albumin Level 4.2 g/dL (3.5-5.2); Alkaline Phosphatase 94 U/L (40-130); Anion Gap 11.9 (5-19); Aspartate Amino Transferase 26 U/L (0-40); Blood Urea Nitrogen 8 mg/dL (8-23); Calcium 8.6 mg/dL (8.5-10.5); Carbon Dioxide 30 mmol/L (22-29); Chloride 105 mmol/L (98-107); Creatinine Clr Calc Pharmacy 98.6604; Globulin 1.9 g/dL (1.3-4.6); Glomerular Filtration Rate 113.2 mL/min (90-130); Glucose 144 mg/dL (65-115); Osmolality Calculated 295 mOsm/kg (285-295); Potassium 4.9 mmol/L (3.5-5.1); Sodium 142 mmol/L (136-145); Total Bilirubin 0.4 mg/dL (0.15-1.2); Total Protein 6.1 g/dL (6.6-8.7)
== END 2024-01-01 23:59 | disposition home or self-care (01) ==
PROVIDERS: Internal Medicine Hematology & Oncology; Nurse Practitioner Family; PCP Family Medicine; Visit Provider Internal Medicine Medical Oncology
DX: C91.10 Chronic lymphocytic leukemia of B-cell type not having achieved remission (principal); Z53.9 Procedure and treatment not carried out, unspecified reason
CPT/HCPCS: 36415; 80053; 84132; 85025

== ENCOUNTER 2024-01-12 12:22 | Outpatient (CLI) | payer MEDICARE, SELFPAY ==
--- NOTE | 2024-01-12 13:30 | CTR_ITS ---
PROCEDURE INFORMATION: Exam: CT Chest With Contrast; Diagnostic Exam date and time: 01/12/2024 1:41 PM Age: 63 years old Clinical indication: Condition or disease; Other: Cll; Prior surgery; Surgery date: 6+ months; Surgery type: Gb, hernia; Additional info: Cll/sll with lymphadenopathy TECHNIQUE: Imaging protocol: Diagnostic computed tomography of the chest with contrast. Radiation optimization: All CT scans at this facility use at least one of these dose optimization techniques: automated exposure control; mA and/or kV adjustment per patient size (includes targeted exams where dose is matched to clinical indication); or iterative reconstruction. Contrast material: OMNI 350; Contrast volume: 100 ml; Contrast route: INTRAVENOUS (IV); COMPARISON: CT chest abdpel w/*[id number] 08/04/2023 2:58 PM RADIATION DOSE METRICS: Total DLP (mGy-cm): 652.74 FINDINGS: Lungs: No focal consolidation or other acute appearing pulmonary opacity. Pleural spaces: No pleural effusion or pneumothorax noted. Heart: There is no cardiomegaly. There is no pericardial effusion. Lymph nodes: No pathologically enlarged lymph nodes (by short axis size criteria). Vasculature: There is no aortic dissection. There is no aortic aneurysm. There is atherosclerotic disease. No gross pulmonary emboli. Bones/joints: No acute osseous abnormality. Stable 6.4 mm sclerotic focus in the posterior aspect of T11 vertebral body. There is degenerative disease of the spine. Enlarged right lobe of the thyroid which extends inferiorly into the substernal region, this remains unchanged. Soft tissues: Unremarkable. Other findings: Right basal scarring. PROCEDURE INFORMATION: Exam: CT Abdomen And Pelvis With Contrast Exam date and time: 01/12/2024 1:41 PM Age: 63 years old Clinical indication: Condition or disease; Other: Cll; Prior surgery; Surgery date: 6+ months; Surgery type: Gb, hernia; Additional info: Cll/sll with lymphadenopathy TECHNIQUE: Imaging protocol: Computed tomography of the abdomen and pelvis with contrast. Radiation optimization: All CT scans at this facility use at least one of these dose optimization techniques: automated exposure control; mA and/or kV adjustment per patient size (includes targeted exams where dose is matched to clinical indication); or iterative reconstruction. Contrast material: OMNI 350; Contrast volume: 100 ml; Contrast route: INTRAVENOUS (IV); COMPARISON: CT chest abdpel w/*[id number] 08/04/2023 2:58 PM RADIATION DOSE METRICS: Total DLP (mGy-cm): 652.74 FINDINGS: Liver: The liver is prominent with intrahepatic ductal dilatation. Gallbladder and biliary ducts: There is a mild, expected degree of intrahepatic and common bile duct dilation. Pancreas: Pancreas is unremarkable. No ductal dilation or peripancreatic inflammation. Spleen: The spleen is unremarkable. Adrenal glands: Stable bilateral adrenal adenomas. Kidneys and ureters: Stable severe atrophy of the right kidney with associated cortical thinning and scarring. Associated extrarenal pelvis. Left kidney is unremarkable. Bilateral simple renal cysts are present, as well as other subcentimeter hypodensities which are too small to characterize. Stomach and bowel: Stomach is not fully distended. Small and large bowel are normal in caliber without evidence of obstruction. Diverticulosis without evidence of diverticulitis. Appendix: No evidence of appendicitis. Intraperitoneal space: No free intraperitoneal air. No fluid collection. Vasculature: There is no aortic aneurysm. There is atherosclerotic disease. Lymph nodes: Stable prominent mesenteric, retroperitoneal, iliac and inguinal nodes. Urinary bladder: No focal wall thickening of the urinary bladder. Reproductive: Visualized portions of the male reproductive tract are unremarkable, though routine CT is limited in this regard. The prostate is enlarged and indents the base of the bladder. Bones/joints: No acute osseous abnormality. There is degenerative disease of the spine. Soft tissues: There is a small fat containing umbilical hernia. CT/CT chest abdpel w/*[id number] IMPRESSION: 1. No acute findings. 2. Enlarged right thyroid lobe which extends inferiorly into the substernal region. IMPRESSION: 1. Stable diffuse prominent mesenteric, retroperitoneal, pelvic and inguinal nodes. 2. Stable bilateral adrenal adenomas. 3. Atrophic right kidney. 4. Enlarged prostate. COMMENTS: Consistent with the [employer]'s Incidental Findings Committee white paper (J Am Barbara Radiol 2018): Any incidental renal lesion less than 1 cm or classified as too small to characterize, or any incidental cystic renal lesion characterized as simple-appearing, is likely benign. No follow-up imaging is recommended for these lesions per consensus recommendations based on imaging criteria.
[2024-01-12] MEDS: iohexol 350 mg/mL 500 mL Btl (per mL) PO (13:46)
[2024-01-12] MEDS: iohexol 350 mg/mL 500 mL Btl (per mL) IV (13:47)
== END 2024-01-12 12:23 | disposition home or self-care (01) ==
LOC: RAD 12:22
PROVIDERS: PCP Family Medicine; Visit Provider Internal Medicine Hematology & Oncology
DX: C91.10 Chronic lymphocytic leukemia of B-cell type not having achieved remission (principal); Z90.49 Acquired absence of other specified parts of digestive tract; R16.0 Hepatomegaly, not elsewhere classified; K83.8 Other specified diseases of biliary tract; D35.01 Benign neoplasm of right adrenal gland; D35.02 Benign neoplasm of left adrenal gland; N26.1 Atrophy of kidney (terminal); Q61.02 Congenital multiple renal cysts; K80.20 Calculus of gallbladder without cholecystitis without obstruction; N40.0 Benign prostatic hyperplasia without lower urinary tract symptoms
CPT/HCPCS: 71260; 74177

== ENCOUNTER 2024-01-26 11:44 | Oncology outpatient (recurring) (ONCR) | payer MEDICARE, SELFPAY ==
[2024-01-26 12:27] LABS: Hematocrit 44.9 % (37-53); Mean Corpuscular Hemoglobin 28.8 pg (27-33); Mean Corpuscular Volume 93.2 fl (82-101); Mean Platelet Volume 11.6 fL (7.4-10.4); Platelet Count 261 10^3/cmm (157-399); Red Blood Count 4.82 10^6/uL (3.85-5.65); Red Cell Distribution Width 13.2 % (12.1-15.1)
[2024-01-26 12:35] LABS: Alanine Aminotransferase 10 U/L (0-41); Albumin Level 4.1 g/dL (3.5-5.2); Alkaline Phosphatase 68 U/L (40-130); Anion Gap 9.5 (5-19); Aspartate Amino Transferase 15 U/L (0-40); Blood Urea Nitrogen 8 mg/dL (8-23); Carbon Dioxide 29 mmol/L (22-29); Chloride 102 mmol/L (98-107); Creatinine Clr Calc Pharmacy 97.7453; Globulin 2.1 g/dL (1.3-4.6); Glucose 109 mg/dL (65-115); Lactate Dehydrogenase 137 U/L (135-225); Osmolality Calculated 281 mOsm/kg (285-295); Potassium 4.5 mmol/L (3.5-5.1); Sodium 136 mmol/L (136-145); Total Bilirubin 0.4 mg/dL (0.15-1.2); Total Protein 6.2 g/dL (6.6-8.7)
[2024-01-26 13:08] LABS: Hepatitis A Antibody IgM Non-Reactive (Nonreactive); Hepatitis B Core AB, Total Non-Reactive (Nonreactive); Hepatitis B Surface AB < 3.5 (11.5-1000); Hepatitis B Surface Antigen Non-Reactive (Nonreactive); Hepatitis C Virus Antibody Non-Reactive (Nonreactive)
[2024-01-26 13:10] LABS: White Blood Count 54.79 10^3/uL (3.29-11.43)
[2024-01-26 13:11] LABS: Eosinophils 0 %; Lymphocytes 64 %; Lymphocytes Absolute 43.8 10^3/cmm (1.2-3.4); Platelet Estimate Normal (Normal); Segmented Neutrophils 20 %; Slide Review Slide Review Perform; Total Cells Counted 100 (0-100)
== END 2024-01-31 23:59 | disposition home or self-care (01) ==
PROVIDERS: Internal Medicine Hematology & Oncology; PCP Family Medicine; Visit Provider Internal Medicine Medical Oncology
DX: C91.10 Chronic lymphocytic leukemia of B-cell type not having achieved remission (principal); E04.9 Nontoxic goiter, unspecified; Z79.899 Other long term (current) drug therapy
CPT/HCPCS: 36415; 80053; 83615; 84550; 85007; 85025; 86705; 86706; 86709; 86803; 87340; 99214

== ENCOUNTER 2024-02-23 10:46 | Oncology outpatient (recurring) (ONCR) | payer MEDICARE, OTHER, SELFPAY ==
[2024-02-23 11:01] LABS: Hematocrit 45.7 % (37-53); Mean Corpuscular HGB Conc 30.4 g/dL (30-55); Mean Corpuscular Hemoglobin 29.2 pg (27-33); Mean Platelet Volume 11.4 fL (7.4-10.4); Platelet Count 203 10^3/cmm (157-399); Red Blood Count 4.76 10^6/uL (3.85-5.65); Red Cell Distribution Width 13.3 % (12.1-15.1)
[2024-02-23 11:20] LABS: Alanine Aminotransferase 12 U/L (0-41); Albumin Level 4.1 g/dL (3.5-5.2); Alkaline Phosphatase 76 U/L (40-130); Anion Gap 8.9 (5-19); Aspartate Amino Transferase 16 U/L (0-40); Blood Urea Nitrogen 9 mg/dL (8-23); Calcium 8.9 mg/dL (8.5-10.5); Carbon Dioxide 30 mmol/L (22-29); Chloride 106 mmol/L (98-107); Globulin 2.1 g/dL (1.3-4.6); Glomerular Filtration Rate 113.2 mL/min (90-130); Glucose 109 mg/dL (65-115); Lactate Dehydrogenase 140 U/L (135-225); Osmolality Calculated 289 mOsm/kg (285-295); Potassium 4.9 mmol/L (3.5-5.1); Sodium 140 mmol/L (136-145); Total Bilirubin 0.5 mg/dL (0.15-1.2); Total Protein 6.2 g/dL (6.6-8.7)
[2024-02-23 11:53] LABS: Slide Review Slide Review Perform
[2024-02-23 11:55] LABS: Absolute Neutrophil 10.7 10^3/cmm (1.4-6.5); Absolute Segmented Neutrophil 10.7 10/cmm (1.6-7.1); Eosinophils 0 %; Lymphocytes 7 %; Lymphocytes Absolute 55.4 10^3/cmm (1.2-3.4); Monocytes Absolute 0.7 10^3/cmm (0.1-0.6); Platelet Estimate Normal (Normal); Total Cells Counted 100 (0-100); White Blood Count 66.76 10^3/uL (3.29-11.43)
[2024-02-23 11:57] LABS: Segmented Neutrophils 16 %
== END 2024-03-02 23:59 | disposition home or self-care (01) ==
PROVIDERS: Internal Medicine Medical Oncology; PCP Family Medicine; Visit Provider Internal Medicine Medical Oncology
DX: C91.10 Chronic lymphocytic leukemia of B-cell type not having achieved remission (principal); Z79.899 Other long term (current) drug therapy; E01.0 Iodine-deficiency related diffuse (endemic) goiter
CPT/HCPCS: 36415; 80053; 83615; 85007; 85025; 99214

== ENCOUNTER 2024-03-29 08:42 | Oncology outpatient (recurring) (ONCR) | payer MEDICARE, OTHER, SELFPAY ==
[2024-03-29 09:02] LABS: Hematocrit 45.9 % (37-53); Mean Corpuscular HGB Conc 30.7 g/dL (30-55); Mean Corpuscular Hemoglobin 29.3 pg (27-33); Mean Corpuscular Volume 95.4 fl (82-101); Mean Platelet Volume 12.1 fL (7.4-10.4); Platelet Count 196 10^3/cmm (157-399); Red Blood Count 4.81 10^6/uL (3.85-5.65); Red Cell Distribution Width 13.5 % (12.1-15.1)
[2024-03-29 09:21] LABS: Alanine Aminotransferase 11 U/L (0-41); Albumin Level 4.3 g/dL (3.5-5.2); Alkaline Phosphatase 92 U/L (40-130); Anion Gap 12.4 (5-19); Aspartate Amino Transferase 16 U/L (0-40); Blood Urea Nitrogen 9 mg/dL (8-23); Carbon Dioxide 29 mmol/L (22-29); Chloride 101 mmol/L (98-107); Creatinine Clr Calc Pharmacy 97.8116; Globulin 1.8 g/dL (1.3-4.6); Glomerular Filtration Rate 96.7 mL/min (90-130); Glucose 138 mg/dL (65-115); Lactate Dehydrogenase 147 U/L (135-225); Osmolality Calculated 287 mOsm/kg (285-295); Potassium 4.4 mmol/L (3.5-5.1); Sodium 138 mmol/L (136-145); Total Bilirubin 0.5 mg/dL (0.15-1.2); Total Protein 6.1 g/dL (6.6-8.7)
[2024-03-29 09:25] LABS: White Blood Count 81.75 10^3/uL (3.29-11.43)
[2024-03-29 09:30] LABS: Slide Review Slide Review Perform
[2024-03-29 09:31] LABS: Eosinophils 0 %; Giant Platelets Trace; Lymphocytes 67 %; Lymphocytes Absolute 69.5 10^3/cmm (1.2-3.4); Monocytes Absolute 1.6 10^3/cmm (0.1-0.6); Platelet Estimate Normal (Normal); Segmented Neutrophils 11 %; Smudge Cells 1+; Total Cells Counted 100 (0-100)
== END 2024-04-02 23:59 | disposition home or self-care (01) ==
PROVIDERS: Nurse Practitioner; PCP Family Medicine; Visit Provider Internal Medicine Medical Oncology
DX: C91.10 Chronic lymphocytic leukemia of B-cell type not having achieved remission (principal)
CPT/HCPCS: 36415; 80053; 83615; 85007; 85025; 99214

== ENCOUNTER 2024-04-02 15:29 | Emergency (ER) | payer MEDICARE, SELFPAY ==
[2024-04-02] VITALS (11 sets, daily range): BP systolic 93–116; BP diastolic 61–79; PULSE 89–108; RESP 16; TEMP 36.7; O2SAT 91–97; BMI 21.8
--- NOTE | 2024-04-02 15:32 | XRR_ITS ---
PROCEDURE INFORMATION: Exam: XR Chest Exam date and time: 04/02/2024 3:53 PM Age: 64 years old Clinical indication: Cough TECHNIQUE: Imaging protocol: Radiologic exam of the chest. Views: 1 view. COMPARISON: CT chest abdpel w/*[id number] 01/12/2024 1:41 PM FINDINGS: Lungs: Minimal atelectasis or fibrosis at the left lung base unchanged since prior chest CT. Pleural spaces: Unremarkable. No pleural effusion. No pneumothorax. Heart/Mediastinum: Unremarkable. No cardiomegaly. Bones/joints: Unremarkable. XR/XR chest 1V portable [id number] IMPRESSION: No acute cardiopulmonary disease.
[2024-04-02 16:51] LABS: Covid PCR NEGATIVE (Negative); Influenza A NEGATIVE (Negative); Influenza B NEGATIVE (Negative); Respiratory Syncytial Virus Ce NEGATIVE (Negative)
--- NOTE | 2024-04-02 20:50 | XRR_ITS ---
PROCEDURE INFORMATION: Exam: XR Abdomen Exam date and time: 04/02/2024 9:02 PM Age: 64 years old Clinical indication: Abdominal pain; Prior surgery; Surgery date: 6+ months; Surgery type: Gallbladder; Hernia repair; Additional info: Pain, constipation TECHNIQUE: Imaging protocol: Radiologic exam of the abdomen. Views: Frontal supine view of the abdomen. 1 View. COMPARISON: CT chest abdpel w/*[id number] 01/12/2024 1:41 PM FINDINGS: Gastrointestinal tract: Moderate constipation without bowel dilation indicate obstruction. Bones/joints: Unremarkable. XR/XR abdomen 1V* [id number] IMPRESSION: Moderate constipation without bowel dilation indicate obstruction.
--- NOTE | 2024-04-02 20:52 | ED_ITS ---
HPI - Abdominal Pain 2 General: Chief Complaint: Abdominal Pain Stated Complaint: sick Time Seen by Provider: 04/02/24 20:33 History of Present Illness: Patient presents to the ER with complaints of abdominal pain. He says it is right around his bellybutton. Has been having his way for last 3 to 4 days. He does have leukemia that is currently being treated for he saw Dr. Serna in oncology 5 days ago he was feeling decent at that time. Patient said he did have 1 episode of diarrhea last night, said he feels like he needs to throw up but can just dry heaves. Patient does not usually have any abdominal type problems. Denies any fever chills. Related Data Home Medications Medication Instructions Recorded Confirmed diphenhydramine HCl 25 mg tablet 25 mg PO .Hs PRN Allergy Symptoms 11/28/21 03/29/24 (Benadryl Allergy) ibuprofen 200 mg tablet 200 mg PO Q6H PRN Pain 07/10/23 03/29/24 melatonin 10 mg chewable tablet 10 mg PO BEDTIME 07/10/23 03/29/24 fexofenadine 180 mg tablet 180 mg PO DAILY Allergies 08/14/23 03/29/24 Allergies Allergy/AdvReac Type Severity Reaction Status Date / Time ethinyl estradiol Allergy ALGY-Conges Verified 03/29/24 09:11 [From Seasonale (91)] gabriele levonorgestrel Allergy ALGY-Conges Verified 03/29/24 09:11 [From Seasonale (91)] gabriele Review of Systems 2 General: Reports: 10 or more systems reviewed and unremarkable except in HPI and below PFSH ED 2 PFSH: Medical History Seasonal allergies Surgical History History of hernia repair Hx laparoscopic cholecystectomy Age 14 Hx of colonoscopy with polypectomy 6-7 yrs ago Family History Family/Other Cancer 2 aunts - Bone marrow cancer Uncle with stomach cancer Aunt stomach cancer Father Diabetes Hyperlipidemia Hypertension Denies family history of CAD (coronary artery disease) Clotting disorder Dementia Psychiatric illness Chronic kidney disease (CKD) Suicide Anesthesia complication Bleeding disorder Lung disease Stroke Social History Smoking and tobacco/nicotine status: never used tobacco/nicotine Second hand smoke exposure: Yes (spouse smokes) Alcohol intake: current Alcohol intake frequency: holidays/special occasions only Substance/Drug Use: current Physical Exam 2 Const: COMMON NORMALS: no acute distress, average body habitus, patient oriented x3, no limitations, healthy appearing, alert and well nourished HENMT: COMMON NORMALS: normocephalic, atraumatic, hearing grossly normal bilaterally, external ears normal, Normal external nose present and moist oral mucous membranes HEAD & SCALP: normocephalic and atraumatic NOSE: Normal external nose present EXTERNAL EAR: Yes external ears normal Neck/C-Spine: COMMON NORMALS: full ROM, no lymphadenopathy, supple, no meningeal signs, no JVD and Thyroid normal THYROID: Thyroid normal Chest: COMMONS NORMALS: normal inspection of the chest and normal palpation of entire chest wall Resp: COMMON NORMALS: normal respiratory effort, No retractions, No use of accessory muscles and clear to auscultation bilaterally AUSCULTATION: clear to auscultation bilaterally Cardio: COMMON NORMALS: no JVD, regular rate, regular rhythm, S1 normal heart sound present, S2 normal heart sound present, No gallops present (Cardio), No clicks present (Cardio), No murmurs present (Cardio) and No rub (Cardio) R ATE: regular rate RHYTHM: regular rhythm HEART SOUNDS: S1 normal heart sound present and S2 normal heart sound present GI: COMMON NORMALS: Normal to inspection, nondistended, normoactive bowel sounds present, Soft to palpation, No hepatosplenomegaly present and no masses; negative for non-tender (Mildly tender mid abdomen) PALPATION: Yes Soft to palpation and Yes No hepatosplenomegaly present Neuro: COMMON NORMALS: patient oriented x3 SENSORIUM/ORIENTATION: Yes alert MENINGEAL SIGNS: Yes no meningeal signs Course 2 Vital Signs: Vital signs: Vital Signs Temperature 98.1 F 04/02/24 15:52 Pulse Rate 103 H 04/02/24 15:52 Respiratory Rate 16 04/02/24 15:52 Blood Pressure 116/68 04/02/24 22:30 Pulse Oximetry 93 04/02/24 22:30 MDM - Abdominal Pain Medical Decision Making Lab work showed elevated white count which is consistent with patient's CLL otherwise essentially unremarkable. Chest x-ray was negative, abdomen x-ray showed moderate constipation without obstruction. These results was discussed with the patient. Patient be increasing his stool softeners and laxatives. Patient will call Dr. Ontiveros's office Friday morning to alert him of the increase in the white blood cell count. Medical Records I reviewed the patient's medical records. Lab Data I reviewed the patient's lab results. 04/02/24 21:40 04/02/24 21:40 Labs/Radiology: Radiology Impressions Chest X-Ray 04/02/24 15:32 IMPRESSION: No acute cardiopulmonary disease. Abdomen X-Ray 04/02/24 20:50 IMPRESSION: Moderate constipation without bowel dilation indicate obstruction. Laboratory Results WBC 144.52 10^3/uL (3.29-11.43) H* 04/02/24 21:40 RBC 4.94 10^6/uL (3.85-5.65) 04/02/24 21:40 Hgb 14.20 g/dL (11.27-16.99) 04/02/24 21:40 Hct 46.2 % (37-53) 04/02/24 21:40 MCV 93.5 fl (82-101) 04/02/24 21:40 MCH 28.7 pg (27-33) 04/02/24 21:40 MCHC 30.7 g/dL (30-55) 04/02/24 21:40 RDW 13.6 % (12.1-15.1) 04/02/24 21:40 Plt Count 223 10^3/cmm (157-399) 04/02/24 21:40 MPV 11.7 fL (7.4-10.4) H 04/02/24 21:40 Neut % (Auto) 11.5 % 04/02/24 21:40 Lymph % (Auto) 44.3 % 04/02/24 21:40 [place] % (Auto) 41.7 % 04/02/24 21:40 Eos % (Auto) 0.3 % 04/02/24 21:40 Baso % (Auto) 0.1 % 04/02/24 21:40 Neut # (Auto) 16.58 10^3/uL (1.8-7.7) H 04/02/24 21:40 Lymph # (Auto) 64.1 10^3/uL (0.8-4.8) H 04/02/24 21:40 [place] # (Auto) 60.3 10^3/uL (0.2-0.9) H 04/02/24 21:40 Eos # (Auto) 0.4 10^3/uL (0.0-0.8) 04/02/24 21:40 Baso # (Auto) 0.2 10^3/uL (0.0-0.1) H 04/02/24 21:40 Nucleated RBC % (auto) 0 % 04/02/24 21:40 Nucleated RBCs # 0.0 /100WBC 04/02/24 21:40 Sodium 142 mmol/L (136-145) 04/02/24 21:40 Potassium 3.6 mmol/L (3.5-5.1) 04/02/24 21:40 Chloride 103 mmol/L (98-107) 04/02/24 21:40 Carbon Dioxide 29 mmol/L (22-29) 04/02/24 21:40 Anion Gap 13.6 (5-19) 04/02/24 21:40 BUN 7 mg/dL (8-23) L 04/02/24 21:40 Creatinine 0.9 mg/dL (0.7-1.2) 04/02/24 21:40 GFR Calculation 84.4 mL/min (90-130) L 04/02/24 21:40 Glucose 115 mg/dL (65-115) 04/02/24 21:40 Calculated Osmolality 293 mOsm/kg (285-295) 04/02/24 21:40 Calcium 9.6 mg/dL (8.5-10.5) 04/02/24 21:40 Magnesium 1.6 mg/dL (1.7-2.3) L 04/02/24 21:40 Total Bilirubin 0.5 mg/dL (0.15-1.2) 04/02/24 21:40 AST 33 U/L (0-40) 04/02/24 21:40 ALT 27 U/L (0-41) 04/02/24 21:40 Alkaline Phosphatase 146 U/L (40-130) H 04/02/24 21:40 Total Protein 6.8 g/dL (6.6-8.7) 04/02/24 21:40 Albumin 4.2 g/dL (3.5-5.2) 04/02/24 21:40 Globulin 2.6 g/dL (1.3-4.6) 04/02/24 21:40 Lipase 9 U/L (13-60) L 04/02/24 21:40 Coronavirus (PCR) Negative (Negative) 04/02/24 15:59 Influenza A (PCR) Negative (Negative) 04/02/24 15:59 Influenza Type B (PCR) Negative (Negative) 04/02/24 15:59 RSV (PCR) Negative (Negative) 04/02/24 15:59 All radiology interpretation(s) finalized by discharge Discharge Plan Discharge Patient Disposition: Home Clinical Impression: CLL (chronic lymphocytic leukemia) Constipation Qualifiers: Constipation type: unspecified constipation type Qualified Code(s): K59.00 - Constipation, unspecified Condition: Stable Prescriptions: No Action diphenhydramine HCl [Benadryl Allergy] 25 mg tablet 25 mg PO .Hs PRN (Reason: Allergy Symptoms) fexofenadine 180 mg tablet 180 mg PO DAILY ibuprofen 200 mg Tablet 200 mg PO Q6H PRN (Reason: Pain) melatonin 10 mg Tablet,Chewable 10 mg PO BEDTIME Discharge Orders: Discharge ED (Routine); Ordered 04/02/24 Ordered By: Jason Snell Referrals: Trenton Willard DO [Primary Care Provider] - 1 week Patient Instructions: Constipation - Adult Activity Restrictions/Additional Instructions: Lab work showed your white blood cell count was elevated at 1 44K, this is consistent with your CLL, please notify Dr. Garcia's office Friday morning for him to review your lab work. Otherwise please increase your stool softener and laxative use as needed for constipation. Thank you for choosing [facility] for your healthcare needs today. Please realize that you were seen in the emergency department and that we are providing you with an emergency medical screening exam and this may not be a complete and all exclusive of all testing and/or medical workup we may need to determine your element or severity of your illness. It is very important that you follow-up as instructed with your primary care provider or specialist for the additional evaluation and to discuss your medical treatment plan. You may return to the emergency department should you have concerns or if your condition changes or worsens in any way. Coding Level of Care Code ED Diamond Sizer for Christine Garcia
[2024-04-02] MEDS: ondansetron 4 MG Tablet 8 MG PO (21:27)
[2024-04-02 22:00] LABS: Basophils # 0.2 10^3/uL (0.0-0.1); Basophils % 0.1 %; Eosinophils # 0.4 10^3/uL (0.0-0.8); Eosinophils % 0.3 %; Hematocrit 46.2 % (37-53); Lymphocytes # 64.1 10^3/uL (0.8-4.8); Lymphocytes % 44.3 %; Mean Corpuscular HGB Conc 30.7 g/dL (30-55); Mean Corpuscular Hemoglobin 28.7 pg (27-33); Mean Corpuscular Volume 93.5 fl (82-101); Mean Platelet Volume 11.7 fL (7.4-10.4); Monocytes # 60.3 10^3/uL (0.2-0.9); Monocytes % 41.7 %; Neutrophils # 16.58 10^3/uL (1.8-7.7); Neutrophils % 11.5 %; Nucleated Red Blood Cells % 0 %; Platelet Count 223 10^3/cmm (157-399); Red Blood Count 4.94 10^6/uL (3.85-5.65); Red Cell Distribution Width 13.6 % (12.1-15.1)
[2024-04-02 22:34] LABS: Alanine Aminotransferase 27 U/L (0-41); Albumin Level 4.2 g/dL (3.5-5.2); Alkaline Phosphatase 146 U/L (40-130); Anion Gap 13.6 (5-19); Aspartate Amino Transferase 33 U/L (0-40); Blood Urea Nitrogen 7 mg/dL (8-23); Calcium 9.6 mg/dL (8.5-10.5); Carbon Dioxide 29 mmol/L (22-29); Chloride 103 mmol/L (98-107); Creatinine Clr Calc Pharmacy 86.5288; Globulin 2.6 g/dL (1.3-4.6); Glomerular Filtration Rate 84.4 mL/min (90-130); Glucose 115 mg/dL (65-115); Lipase 9 U/L (13-60); Magnesium 1.6 mg/dL (1.7-2.3); Osmolality Calculated 293 mOsm/kg (285-295); Potassium 3.6 mmol/L (3.5-5.1); Sodium 142 mmol/L (136-145); Total Bilirubin 0.5 mg/dL (0.15-1.2); Total Protein 6.8 g/dL (6.6-8.7)
[2024-04-02 23:08] LABS: Slide Review Slide Review Perform
[2024-04-02 23:09] LABS: White Blood Count 144.52 10^3/uL (3.29-11.43)
[2024-04-03 00:07] VITALS: BP 108/77; PULSE 100; RESP 18; O2SAT 93
== END 2024-04-03 00:12 | disposition home or self-care (01) ==
PROVIDERS: Emergency Medicine; Emergency Provider Emergency Medicine; PCP Family Medicine
DX: C91.10 Chronic lymphocytic leukemia of B-cell type not having achieved remission (principal); K59.00 Constipation, unspecified; Z11.52 Encounter for screening for COVID-19
CPT/HCPCS: 36415; 71045; 74018; 80053; 83690; 83735; 85025; 87637; 99284; Q0162

== ENCOUNTER 2024-04-26 08:41 | Oncology outpatient (recurring) (ONCR) | payer MEDICARE, OTHER, SELFPAY ==
[2024-04-26 09:28] LABS: Basophils # 0.1 10^3/uL (0.0-0.1); Basophils % 0.1 %; Eosinophils # 0.3 10^3/uL (0.0-0.8); Eosinophils % 0.3 %; Hematocrit 46.3 % (37-53); Lymphocytes # 74.7 10^3/uL (0.8-4.8); Mean Corpuscular HGB Conc 29.8 g/dL (30-55); Mean Corpuscular Volume 93.9 fl (82-101); Mean Platelet Volume 11.9 fL (7.4-10.4); Monocytes % 3.5 %; Neutrophils # 7.46 10^3/uL (1.8-7.7); Neutrophils % 8.8 %; Nucleated Red Blood Cells # 0.1 /100WBC; Nucleated Red Blood Cells % 0.1 %; Platelet Count 250 10^3/cmm (157-399); Red Blood Count 4.93 10^6/uL (3.85-5.65); Red Cell Distribution Width 13.7 % (12.1-15.1)
[2024-04-26 09:42] LABS: Slide Review Slide Review Perform; White Blood Count 85.86 10^3/uL (3.29-11.43)
[2024-04-26 09:43] LABS: Alanine Aminotransferase 10 U/L (0-41); Albumin Level 4.4 g/dL (3.5-5.2); Alkaline Phosphatase 91 U/L (40-130); Anion Gap 11.9 (5-19); Aspartate Amino Transferase 18 U/L (0-40); Blood Urea Nitrogen 10 mg/dL (8-23); Calcium 9.3 mg/dL (8.5-10.5); Carbon Dioxide 28 mmol/L (22-29); Chloride 106 mmol/L (98-107); Creatinine Clr Calc Pharmacy 96.6461; Glomerular Filtration Rate 112.8 mL/min (90-130); Glucose 130 mg/dL (65-115); Lactate Dehydrogenase 152 U/L (135-225); Osmolality Calculated 293 mOsm/kg (285-295); Potassium 4.9 mmol/L (3.5-5.1); Sodium 141 mmol/L (136-145); Total Bilirubin 0.7 mg/dL (0.15-1.2); Total Protein 6.4 g/dL (6.6-8.7)
== END 2024-04-30 23:59 | disposition home or self-care (01) ==
PROVIDERS: PCP Family Medicine; Visit Provider Internal Medicine Medical Oncology
DX: C91.10 Chronic lymphocytic leukemia of B-cell type not having achieved remission (principal); Z79.899 Other long term (current) drug therapy
CPT/HCPCS: 36415; 80053; 83615; 85025; 99214

== ENCOUNTER 2024-05-07 09:53 | Outpatient (CLI) | payer MEDICARE, OTHER, SELFPAY | END 2024-05-07 09:54 | disposition home or self-care (01) | LOC: LAB 09:56 | PROVIDERS: PCP Family Medicine; Visit Provider Nurse Practitioner Family | DX: N40.1 Benign prostatic hyperplasia with lower urinary tract symptoms (principal) | CPT/HCPCS: 36415; 84153 ==

== ENCOUNTER 2024-05-31 12:00 | Oncology outpatient (recurring) (ONCR) | payer MEDICARE, OTHER, SELFPAY ==
[2024-05-24 12:12] LABS: Basophils # 0.1 10^3/uL (0.0-0.1); Basophils % 0.1 %; Eosinophils # 0.3 10^3/uL (0.0-0.8); Eosinophils % 0.2 %; Hematocrit 43.4 % (37-53); Lymphocytes % 89.4 %; Mean Corpuscular HGB Conc 29.5 g/dL (30-55); Mean Corpuscular Hemoglobin 28.1 pg (27-33); Mean Corpuscular Volume 95.4 fl (82-101); Mean Platelet Volume 11.3 fL (7.4-10.4); Monocytes # 3.9 10^3/uL (0.2-0.9); Monocytes % 3.2 %; Neutrophils # 8.32 10^3/uL (1.8-7.7); Neutrophils % 6.6 %; Nucleated Red Blood Cells % 0 %; Platelet Count 300 10^3/cmm (157-399); Red Blood Count 4.55 10^6/uL (3.85-5.65)
[2024-05-24 12:26] LABS: Alanine Aminotransferase 12 U/L (0-41); Albumin Level 4.2 g/dL (3.5-5.2); Alkaline Phosphatase 102 U/L (40-130); Anion Gap 11.8 (5-19); Aspartate Amino Transferase 16 U/L (0-40); Blood Urea Nitrogen 11 mg/dL (8-23); Calcium 8.9 mg/dL (8.5-10.5); Carbon Dioxide 29 mmol/L (22-29); Chloride 104 mmol/L (98-107); Glomerular Filtration Rate 112.8 mL/min (90-130); Glucose 98 mg/dL (65-115); Osmolality Calculated 289 mOsm/kg (285-295); Potassium 4.8 mmol/L (3.5-5.1); Sodium 140 mmol/L (136-145); Total Bilirubin 0.3 mg/dL (0.15-1.2); Total Protein 6.2 g/dL (6.6-8.7)
[2024-05-24 12:34] LABS: Slide Review Slide Review Perform
[2024-05-24 12:35] LABS: White Blood Count 124.21 10^3/uL (3.29-11.43)
[2024-05-31 12:04] LABS: Hematocrit 41.5 % (37-53); Mean Corpuscular HGB Conc 30.8 g/dL (30-55); Mean Corpuscular Hemoglobin 28.3 pg (27-33); Mean Corpuscular Volume 91.8 fl (82-101); Mean Platelet Volume 11.2 fL (7.4-10.4); Platelet Count 214 10^3/cmm (157-399); Red Blood Count 4.52 10^6/uL (3.85-5.65); Red Cell Distribution Width 14.4 % (12.1-15.1)
[2024-05-31 12:30] LABS: Alanine Aminotransferase 36 U/L (0-41); Alkaline Phosphatase 199 U/L (40-130); Aspartate Amino Transferase 59 U/L (0-40); Blood Urea Nitrogen 7 mg/dL (8-23); Calcium 8.5 mg/dL (8.5-10.5); Carbon Dioxide 28 mmol/L (22-29); Chloride 101 mmol/L (98-107); Globulin 2.1 g/dL (1.3-4.6); Glomerular Filtration Rate 84.4 mL/min (90-130); Glucose 99 mg/dL (65-115); Osmolality Calculated 282 mOsm/kg (285-295); Sodium 137 mmol/L (136-145); Total Bilirubin 0.5 mg/dL (0.15-1.2); Total Protein 6.1 g/dL (6.6-8.7); Uric Acid 3.6 mg/dL (3.4-7.0)
[2024-05-31 12:31] LABS: Anion Gap 14.1 (5-19); Potassium 6.1 mmol/L (3.5-5.1)
[2024-05-31 12:35] LABS: White Blood Count 193.85 10^3/uL (3.29-11.43)
[2024-05-31 12:55] LABS: Slide Review Slide Review Perform
[2024-05-31 12:57] LABS: Absolute Segmented Neutrophil 11.6 10/cmm (1.6-7.1); Eosinophils 0 %; Lymphocytes 51 %; Lymphocytes Absolute 149.3 10^3/cmm (1.2-3.4); Segmented Neutrophils 6 %; Total Cells Counted 100 (0-100)
[2024-05-31 12:58] LABS: Absolute Neutrophil 11.6 10^3/cmm (1.4-6.5); Platelet Estimate Normal (Normal)
== END 2024-05-31 23:59 | disposition home or self-care (01) ==
PROVIDERS: Internal Medicine; PCP Family Medicine; Visit Provider Internal Medicine Medical Oncology
DX: Z53.9 Procedure and treatment not carried out, unspecified reason; C91.10 Chronic lymphocytic leukemia of B-cell type not having achieved remission; E87.5 Hyperkalemia; T45.1X5A Adverse effect of antineoplastic and immunosuppressive drugs, initial encounter; Z79.899 Other long term (current) drug therapy
CPT/HCPCS: 36415; 80053; 84550; 85007; 85025; 99214; 99215

== ENCOUNTER 2024-06-02 07:42 | Oncology outpatient (recurring) (ONCR) | payer MEDICARE, OTHER, SELFPAY ==
[2024-06-01 08:09] VITALS: BP 118/74; PULSE 77; TEMP 37.3; O2SAT 94
[2024-06-01] MEDS: sodium chloride 0.9% 250 ML 75 ML IV (08:38)
[2024-06-01] MEDS: acetaminophen 325 mg Tablet 650 MG PO ×2 (08:40→15:05)
[2024-06-01] MEDS: diphenhydrAMINE 50 mg/mL SDV 1mL IVP (08:40)
[2024-06-01] MEDS: dexamethasone 20 MG in sodium chloride 0.9% 50 ML 188 MG IV (08:45)
[2024-06-01] MEDS: obinutuzumab 100 MG in sodium chloride 0.9% (100 ml) 100 ML 26 MG IV (09:42)
[2024-06-01 10:27] LABS: Potassium 6.2 mmol/L (3.5-5.1)
[2024-06-01] MEDS: sodium chloride 0.9% 1,000 ML 250 ML IV (10:36)
[2024-06-01 10:38] VITALS: BP 122/78; PULSE 90; O2SAT 90
[2024-06-01] MEDS: methylPREDNISolone sod succ 40 mg/mL INJ IVP (10:42)
[2024-06-01] MEDS: ipratropium-albuterol 3 mL Neb INHALATION (10:45)
[2024-06-01 10:51] VITALS: BP 115/72; PULSE 77; TEMP 36.9; O2SAT 97
[2024-06-01 11:03] VITALS: BP 123/75; PULSE 92; TEMP 36.4; O2SAT 94
[2024-06-01 15:25] VITALS: BP 116/73; PULSE 123; TEMP 37.3; O2SAT 92
[2024-06-02] VITALS (7 sets, daily range): BP systolic 113–125; BP diastolic 53–76; PULSE 55–90; RESP 16–18; TEMP 36.8–37.1; O2SAT 93–95
[2024-06-02] MEDS: acetaminophen 325 mg Tablet 650 MG PO (08:12)
[2024-06-02] MEDS: sodium chloride 0.9% 250 ML 75 ML IV (08:13)
[2024-06-02] MEDS: diphenhydrAMINE 50 mg/mL SDV 1mL IVP (08:19)
[2024-06-02] MEDS: dexamethasone 20 MG in sodium chloride 0.9% 50 ML 188 MG IV (08:29)
[2024-06-02] MEDS: sodium chloride 0.9% 1,000 ML 500 ML IV (09:27)
[2024-06-02] MEDS: SODIUM CHLORIDE 0.9% IV (09:31)
[2024-06-02] MEDS: OBINUTUZUMAB IV (09:31)
== END 2024-06-02 23:59 | disposition home or self-care (01) ==
PROVIDERS: Internal Medicine Medical Oncology; PCP Family Medicine; Visit Provider Internal Medicine
DX: Z51.11 Encounter for antineoplastic chemotherapy (principal); C91.10 Chronic lymphocytic leukemia of B-cell type not having achieved remission; Z79.52 Long term (current) use of systemic steroids; Z79.899 Other long term (current) drug therapy
CPT/HCPCS: 84132; 96361; 96367; 96375; 96413; 96415; J1100; J1200; J2919; J7030; J7050; J9301; J9999

== ENCOUNTER 2024-06-08 08:14 | Oncology outpatient (recurring) (ONCR) | payer MEDICARE, OTHER, SELFPAY ==
[2024-06-08 09:34] LABS: Mean Corpuscular HGB Conc 31.7 g/dL (30-55); Mean Corpuscular Hemoglobin 27.9 pg (27-33); Mean Platelet Volume 11.8 fL (7.4-10.4); Platelet Count 132 10^3/cmm (157-399); Red Blood Count 5.23 10^6/uL (3.85-5.65); Red Cell Distribution Width 14.3 % (12.1-15.1); White Blood Count 3.84 10^3/uL (3.29-11.43)
[2024-06-08 09:48] LABS: Lactate (Lactic Acid level) 1.3 mmol/L (0.5-2.2)
[2024-06-08 09:52] LABS: Slide Review Slide Review Perform
[2024-06-08 09:55] LABS: Absolute Eosinophils 0.2 10^3/cmm (0.0-0.7); Band Neutrophils Absolute 0.5 10^3/cmm (0.0-1.2); Eosinophils 6 %; Lymphocytes 20 %; Lymphocytes Absolute 0.9 10^3/cmm (1.2-3.4); Monocytes Absolute 0.2 10^3/cmm (0.1-0.6); Segmented Neutrophils 53 %; Total Cells Counted 100 (0-100)
[2024-06-08 09:56] LABS: Absolute Neutrophil 2.5 10^3/cmm (1.4-6.5); Platelet Estimate Normal (Normal)
[2024-06-08 11:09] LABS: Alanine Aminotransferase 25 U/L (0-41); Albumin Level 3.7 g/dL (3.5-5.2); Alkaline Phosphatase 110 U/L (40-130); Anion Gap 11.7 (5-19); Aspartate Amino Transferase 25 U/L (0-40); Blood Urea Nitrogen 14 mg/dL (8-23); Calcium 8.8 mg/dL (8.5-10.5); Carbon Dioxide 26 mmol/L (22-29); Chloride 105 mmol/L (98-107); Creatinine Clr Calc Pharmacy 97.5783; Globulin 2.1 g/dL (1.3-4.6); Glomerular Filtration Rate 134.8 mL/min (90-130); Glucose 110 mg/dL (65-115); Osmolality Calculated 287 mOsm/kg (285-295); Potassium 4.7 mmol/L (3.5-5.1); Sodium 138 mmol/L (136-145); Total Bilirubin 0.4 mg/dL (0.15-1.2); Total Protein 5.8 g/dL (6.6-8.7)
[2024-06-08] MEDS: sodium chloride 0.9% 250 ML 75 ML IV (11:41)
[2024-06-08] MEDS: diphenhydrAMINE 50 mg/mL SDV 1mL IVP (11:44)
[2024-06-08] MEDS: acetaminophen 325 mg Tablet 650 MG PO (11:45)
[2024-06-08] MEDS: dexamethasone 20 MG in sodium chloride 0.9% 50 ML 188 MG IV (11:57)
[2024-06-08] MEDS: obinutuzumab 1,000 MG in sodium chloride 0.9% 250 ML 14.5 MG IV (12:38)
[2024-06-08 12:40] VITALS: BP 92/66; PULSE 76; RESP 18; TEMP 36.6; O2SAT 92
[2024-06-08 16:15] VITALS: BP 104/70; PULSE 86; RESP 18; TEMP 36.9; O2SAT 96
== END 2024-06-08 23:59 | disposition home or self-care (01) ==
PROVIDERS: Nurse Practitioner Family; PCP Family Medicine; Visit Provider Internal Medicine
DX: Z51.11 Encounter for antineoplastic chemotherapy (principal); C91.10 Chronic lymphocytic leukemia of B-cell type not having achieved remission; E87.5 Hyperkalemia; Z79.899 Other long term (current) drug therapy; Z79.52 Long term (current) use of systemic steroids
CPT/HCPCS: 80053; 83605; 85007; 85025; 96367; 96375; 96413; 96415; 99214; J1100; J1200; J7050; J9301; J9999

== ENCOUNTER 2024-06-15 07:19 | Oncology outpatient (recurring) (ONCR) | payer MEDICARE, OTHER, SELFPAY ==
[2024-06-15 07:45] LABS: Basophils # 0.1 10^3/uL (0.0-0.1); Basophils % 2.2 %; Eosinophils # 0.2 10^3/uL (0.0-0.8); Eosinophils % 4.9 %; Hematocrit 42.4 % (37-53); Lymphocytes # 1.3 10^3/uL (0.8-4.8); Lymphocytes % 28.6 %; Mean Corpuscular HGB Conc 31.8 g/dL (30-55); Mean Corpuscular Hemoglobin 28.4 pg (27-33); Mean Corpuscular Volume 89.3 fl (82-101); Mean Platelet Volume 11.2 fL (7.4-10.4); Monocytes # 0.3 10^3/uL (0.2-0.9); Monocytes % 6.5 %; Neutrophils # 2.56 10^3/uL (1.8-7.7); Nucleated Red Blood Cells % 0 %; Platelet Count 244 10^3/cmm (157-399); Red Blood Count 4.75 10^6/uL (3.85-5.65); Red Cell Distribution Width 14.6 % (12.1-15.1); White Blood Count 4.65 10^3/uL (3.29-11.43)
[2024-06-15 08:06] LABS: Alanine Aminotransferase 16 U/L (0-41); Albumin Level 3.7 g/dL (3.5-5.2); Alkaline Phosphatase 96 U/L (40-130); Anion Gap 12.3 (5-19); Aspartate Amino Transferase 21 U/L (0-40); Blood Urea Nitrogen 11 mg/dL (8-23); Calcium 8.4 mg/dL (8.5-10.5); Carbon Dioxide 28 mmol/L (22-29); Chloride 105 mmol/L (98-107); Globulin 2.1 g/dL (1.3-4.6); Glomerular Filtration Rate 112.8 mL/min (90-130); Glucose 135 mg/dL (65-115); Osmolality Calculated 293 mOsm/kg (285-295); Potassium 4.3 mmol/L (3.5-5.1); Sodium 141 mmol/L (136-145); Total Bilirubin 0.5 mg/dL (0.15-1.2); Total Protein 5.8 g/dL (6.6-8.7)
[2024-06-15] MEDS: sodium chloride 0.9% 250 ML 75 ML IV (09:18)
[2024-06-15] MEDS: diphenhydrAMINE 50 mg/mL SDV 1mL IVP (09:19)
[2024-06-15] MEDS: acetaminophen 325 mg Tablet 650 MG PO (09:19)
[2024-06-15] MEDS: dexamethasone 20 MG in sodium chloride 0.9% 50 ML 188 MG IV (09:44)
[2024-06-15] MEDS: obinutuzumab 1,000 MG in sodium chloride 0.9% 250 ML 29 MG IV (10:14)
[2024-06-15 10:17] VITALS: BP 101/75; PULSE 70; RESP 16; TEMP 36.6; O2SAT 96
[2024-06-15 10:47] VITALS: BP 98/64; PULSE 71; RESP 18; TEMP 36.6; O2SAT 98
[2024-06-15 11:50] VITALS: BP 100/65; PULSE 77; RESP 16; TEMP 36.8; O2SAT 96
[2024-06-15 13:48] VITALS: BP 107/71; PULSE 89; TEMP 37.4; O2SAT 96
== END 2024-06-15 23:59 | disposition home or self-care (01) ==
PROVIDERS: Nurse Practitioner Family; PCP Family Medicine; Visit Provider Internal Medicine
DX: Z51.11 Encounter for antineoplastic chemotherapy (principal); C91.10 Chronic lymphocytic leukemia of B-cell type not having achieved remission; E87.5 Hyperkalemia; Z79.899 Other long term (current) drug therapy; Z79.52 Long term (current) use of systemic steroids
CPT/HCPCS: 80053; 85025; 96367; 96375; 96413; 96415; 99213; J1100; J1200; J7050; J9301; J9999

== ENCOUNTER 2024-06-29 08:15 | Oncology outpatient (recurring) (ONCR) | payer MEDICARE, OTHER, SELFPAY ==
[2024-06-22 08:05] LABS: Basophils # 0.1 10^3/uL (0.0-0.1); Basophils % 2.2 %; Eosinophils # 0.2 10^3/uL (0.0-0.8); Hematocrit 41.4 % (37-53); Lymphocytes # 1.3 10^3/uL (0.8-4.8); Lymphocytes % 23.8 %; Mean Corpuscular HGB Conc 32.1 g/dL (30-55); Mean Corpuscular Hemoglobin 29.4 pg (27-33); Mean Corpuscular Volume 91.4 fl (82-101); Mean Platelet Volume 11.1 fL (7.4-10.4); Monocytes # 0.4 10^3/uL (0.2-0.9); Monocytes % 6.7 %; Neutrophils # 3.42 10^3/uL (1.8-7.7); Nucleated Red Blood Cells % 0 %; Platelet Count 276 10^3/cmm (157-399); Red Blood Count 4.53 10^6/uL (3.85-5.65); Red Cell Distribution Width 14.9 % (12.1-15.1); White Blood Count 5.51 10^3/uL (3.29-11.43)
[2024-06-22 08:20] LABS: Alanine Aminotransferase 16 U/L (0-41); Albumin Level 3.9 g/dL (3.5-5.2); Alkaline Phosphatase 84 U/L (40-130); Aspartate Amino Transferase 20 U/L (0-40); Blood Urea Nitrogen 10 mg/dL (8-23); Calcium 8.2 mg/dL (8.5-10.5); Carbon Dioxide 27 mmol/L (22-29); Chloride 106 mmol/L (98-107); Creatinine Clr Calc Pharmacy 98.2777; Glomerular Filtration Rate 134.8 mL/min (90-130); Glucose 155 mg/dL (65-115); Osmolality Calculated 296 mOsm/kg (285-295); Phosphorus 3.4 mg/dL (2.5-4.5); Sodium 142 mmol/L (136-145); Total Bilirubin 0.6 mg/dL (0.15-1.2); Total Protein 5.9 g/dL (6.6-8.7); Uric Acid 5.3 mg/dL (3.4-7.0)
[2024-06-22 08:23] LABS: Anion Gap 13.3 (5-19); Lactate Dehydrogenase 212 U/L (135-225); Potassium 4.3 mmol/L (3.5-5.1)
[2024-06-29 08:46] LABS: Basophils # 0.1 10^3/uL (0.0-0.1); Basophils % 1.7 %; Eosinophils # 0.1 10^3/uL (0.0-0.8); Eosinophils % 3.3 %; Hematocrit 39.5 % (37-53); Lymphocytes # 1.1 10^3/uL (0.8-4.8); Lymphocytes % 26.4 %; Mean Corpuscular HGB Conc 31.4 g/dL (30-55); Mean Corpuscular Hemoglobin 29.2 pg (27-33); Mean Corpuscular Volume 93.2 fl (82-101); Mean Platelet Volume 10.9 fL (7.4-10.4); Monocytes # 0.4 10^3/uL (0.2-0.9); Monocytes % 8.8 %; Neutrophils # 2.47 10^3/uL (1.8-7.7); Neutrophils % 58.6 %; Nucleated Red Blood Cells % 0 %; Platelet Count 264 10^3/cmm (157-399); Red Blood Count 4.24 10^6/uL (3.85-5.65); Red Cell Distribution Width 15.1 % (12.1-15.1); White Blood Count 4.21 10^3/uL (3.29-11.43)
[2024-06-29 09:15] LABS: Alanine Aminotransferase 10 U/L (0-41); Albumin Level 3.7 g/dL (3.5-5.2); Alkaline Phosphatase 76 U/L (40-130); Blood Urea Nitrogen 8 mg/dL (8-23); Calcium 8.7 mg/dL (8.5-10.5); Carbon Dioxide 26 mmol/L (22-29); Chloride 104 mmol/L (98-107); Creatinine Clr Calc Pharmacy 98.5104; Globulin 2.1 g/dL (1.3-4.6); Glomerular Filtration Rate 134.8 mL/min (90-130); Glucose 135 mg/dL (65-115); Osmolality Calculated 290 mOsm/kg (285-295); Sodium 140 mmol/L (136-145); Total Bilirubin 0.5 mg/dL (0.15-1.2); Total Protein 5.8 g/dL (6.6-8.7)
[2024-06-29 09:42] LABS: Anion Gap 14.5 (5-19); Aspartate Amino Transferase 18 U/L (0-40); Potassium 4.5 mmol/L (3.5-5.1)
[2024-06-29] MEDS: acetaminophen 325 mg Tablet 650 MG PO (10:08)
[2024-06-29] MEDS: sodium chloride 0.9% 250 ML 75 ML IV (10:08)
[2024-06-29] MEDS: diphenhydrAMINE 50 mg/mL SDV 1mL IVP (10:09)
[2024-06-29] MEDS: dexamethasone 20 MG in sodium chloride 0.9% 50 ML 188 MG IV (10:20)
[2024-06-29 11:07] VITALS: BP 100/66; PULSE 61; RESP 16; TEMP 36.7; O2SAT 92
[2024-06-29] MEDS: obinutuzumab 1,000 MG in sodium chloride 0.9% 250 ML 32.5 MG IV (11:07)
[2024-06-29 11:43] VITALS: BP 99/68; PULSE 64; RESP 16; TEMP 36.8; O2SAT 95
[2024-06-29 12:14] VITALS: BP 107/72; PULSE 66; RESP 16; TEMP 36.4; O2SAT 97
[2024-06-29 14:40] VITALS: BP 115/72; PULSE 83; RESP 16; TEMP 36.7; O2SAT 95
== END 2024-06-29 23:59 | disposition home or self-care (01) ==
PROVIDERS: Nurse Practitioner Family; PCP Family Medicine; Visit Provider Internal Medicine Medical Oncology
DX: Z53.9 Procedure and treatment not carried out, unspecified reason; Z51.11 Encounter for antineoplastic chemotherapy; C91.10 Chronic lymphocytic leukemia of B-cell type not having achieved remission; Z79.899 Other long term (current) drug therapy
CPT/HCPCS: 36415; 80053; 83615; 84100; 84550; 85025; 96375; 96413; 96415; 99214; J1100; J1200; J7050; J9301; J9999

== ENCOUNTER 2024-07-27 08:00 | Oncology outpatient (recurring) (ONCR) | payer MEDICARE, OTHER, SELFPAY ==
[2024-07-06 13:07] LABS: Basophils # 0.1 10^3/uL (0.0-0.1); Basophils % 1.2 %; Eosinophils # 0.1 10^3/uL (0.0-0.8); Eosinophils % 1.2 %; Hematocrit 41.2 % (37-53); Lymphocytes # 1.2 10^3/uL (0.8-4.8); Lymphocytes % 27.7 %; Mean Corpuscular HGB Conc 31.3 g/dL (30-55); Mean Corpuscular Hemoglobin 29.6 pg (27-33); Mean Corpuscular Volume 94.5 fl (82-101); Mean Platelet Volume 10.7 fL (7.4-10.4); Monocytes # 0.3 10^3/uL (0.2-0.9); Neutrophils # 2.58 10^3/uL (1.8-7.7); Nucleated Red Blood Cells % 0 %; Platelet Count 275 10^3/cmm (157-399); Red Blood Count 4.36 10^6/uL (3.85-5.65); Red Cell Distribution Width 15.3 % (12.1-15.1); White Blood Count 4.23 10^3/uL (3.29-11.43)
[2024-07-06 13:26] LABS: Alanine Aminotransferase 10 U/L (0-41); Albumin Level 4.1 g/dL (3.5-5.2); Alkaline Phosphatase 64 U/L (40-130); Anion Gap 13.2 (5-19); Aspartate Amino Transferase 13 U/L (0-40); Blood Urea Nitrogen 9 mg/dL (8-23); Calcium 8.9 mg/dL (8.5-10.5); Carbon Dioxide 27 mmol/L (22-29); Chloride 103 mmol/L (98-107); Creatinine Clr Calc Pharmacy 98.5104; Glomerular Filtration Rate 134.8 mL/min (90-130); Glucose 101 mg/dL (65-115); Lactate Dehydrogenase 125 U/L (135-225); Osmolality Calculated 287 mOsm/kg (285-295); Potassium 4.2 mmol/L (3.5-5.1); Sodium 139 mmol/L (136-145); Total Bilirubin 0.5 mg/dL (0.15-1.2); Total Protein 6.1 g/dL (6.6-8.7); Uric Acid 3.5 mg/dL (3.4-7.0)
[2024-07-13 13:23] LABS: Basophils # 0.1 10^3/uL (0.0-0.1); Basophils % 0.8 %; Eosinophils % 0.3 %; Hematocrit 41.1 % (37-53); Lymphocytes # 1.3 10^3/uL (0.8-4.8); Lymphocytes % 20.7 %; Mean Corpuscular HGB Conc 31.1 g/dL (30-55); Mean Corpuscular Hemoglobin 29.1 pg (27-33); Mean Corpuscular Volume 93.4 fl (82-101); Monocytes # 0.4 10^3/uL (0.2-0.9); Monocytes % 6.8 %; Neutrophils # 4.58 10^3/uL (1.8-7.7); Neutrophils % 70.8 %; Nucleated Red Blood Cells % 0 %; Platelet Count 286 10^3/cmm (157-399); Red Cell Distribution Width 14.9 % (12.1-15.1); White Blood Count 6.47 10^3/uL (3.29-11.43)
[2024-07-13 13:50] LABS: Alanine Aminotransferase 11 U/L (0-41); Alkaline Phosphatase 60 U/L (40-130); Aspartate Amino Transferase 16 U/L (0-40); Blood Urea Nitrogen 6 mg/dL (8-23); Calcium 8.6 mg/dL (8.5-10.5); Carbon Dioxide 27 mmol/L (22-29); Chloride 105 mmol/L (98-107); Creatinine Clr Calc Pharmacy 98.7438; Globulin 2.1 g/dL (1.3-4.6); Glomerular Filtration Rate 112.8 mL/min (90-130); Glucose 102 mg/dL (65-115); Lactate Dehydrogenase 136 U/L (135-225); Osmolality Calculated 288 mOsm/kg (285-295); Sodium 140 mmol/L (136-145); Total Bilirubin 0.8 mg/dL (0.15-1.2); Total Protein 6.1 g/dL (6.6-8.7); Uric Acid 3.6 mg/dL (3.4-7.0)
[2024-07-20 13:36] LABS: Basophils % 0.7 %; Eosinophils % 0.2 %; Hematocrit 42.8 % (37-53); Mean Corpuscular HGB Conc 30.8 g/dL (30-55); Mean Corpuscular Hemoglobin 29.3 pg (27-33); Mean Corpuscular Volume 95.1 fl (82-101); Mean Platelet Volume 11.1 fL (7.4-10.4); Monocytes # 0.4 10^3/uL (0.2-0.9); Monocytes % 9.2 %; Neutrophils # 2.65 10^3/uL (1.8-7.7); Neutrophils % 64.4 %; Nucleated Red Blood Cells % 0 %; Platelet Count 296 10^3/cmm (157-399); Red Cell Distribution Width 14.6 % (12.1-15.1); White Blood Count 4.12 10^3/uL (3.29-11.43)
[2024-07-20 13:54] LABS: Alanine Aminotransferase 6 U/L (0-41); Albumin Level 4.1 g/dL (3.5-5.2); Alkaline Phosphatase 62 U/L (40-130); Aspartate Amino Transferase 13 U/L (0-40); Blood Urea Nitrogen 6 mg/dL (8-23); Calcium 8.5 mg/dL (8.5-10.5); Carbon Dioxide 28 mmol/L (22-29); Chloride 105 mmol/L (98-107); Creatinine Clr Calc Pharmacy 98.9771; Globulin 1.9 g/dL (1.3-4.6); Glomerular Filtration Rate 134.8 mL/min (90-130); Glucose 94 mg/dL (65-115); Lactate Dehydrogenase 108 U/L (135-225); Osmolality Calculated 289 mOsm/kg (285-295); Sodium 141 mmol/L (136-145); Total Bilirubin 0.5 mg/dL (0.15-1.2); Uric Acid 3.1 mg/dL (3.4-7.0)
[2024-07-27 08:25] LABS: Basophils # 0.1 10^3/uL (0.0-0.1); Basophils % 1.4 %; Eosinophils % 0.2 %; Hematocrit 47.7 % (37-53); Lymphocytes # 0.9 10^3/uL (0.8-4.8); Lymphocytes % 20.7 %; Mean Corpuscular HGB Conc 31.2 g/dL (30-55); Mean Corpuscular Volume 96.2 fl (82-101); Mean Platelet Volume 10.9 fL (7.4-10.4); Monocytes # 0.4 10^3/uL (0.2-0.9); Monocytes % 9.2 %; Neutrophils # 3.03 10^3/uL (1.8-7.7); Neutrophils % 68.3 %; Nucleated Red Blood Cells % 0 %; Platelet Count 308 10^3/cmm (157-399); Red Blood Count 4.96 10^6/uL (3.85-5.65); Red Cell Distribution Width 14.2 % (12.1-15.1); White Blood Count 4.44 10^3/uL (3.29-11.43)
[2024-07-27 08:45] LABS: Alanine Aminotransferase 11 U/L (0-41); Albumin Level 4.3 g/dL (3.5-5.2); Alkaline Phosphatase 70 U/L (40-130); Anion Gap 15.9 (5-19); Aspartate Amino Transferase 16 U/L (0-40); Blood Urea Nitrogen 8 mg/dL (8-23); Calcium 9.1 mg/dL (8.5-10.5); Carbon Dioxide 27 mmol/L (22-29); Chloride 106 mmol/L (98-107); Creatinine Clr Calc Pharmacy 98.2777; Globulin 2.1 g/dL (1.3-4.6); Glomerular Filtration Rate 134.8 mL/min (90-130); Glucose 132 mg/dL (65-115); Lactate Dehydrogenase 115 U/L (135-225); Osmolality Calculated 300 mOsm/kg (285-295); Potassium 3.9 mmol/L (3.5-5.1); Sodium 145 mmol/L (136-145); Total Bilirubin 0.6 mg/dL (0.15-1.2); Total Protein 6.4 g/dL (6.6-8.7); Uric Acid 3.2 mg/dL (3.4-7.0)
[2024-07-27] MEDS: dexamethasone 20 MG in sodium chloride 0.9% 50 ML 260 MG IV (09:54)
[2024-07-27] MEDS: acetaminophen 325 mg Tablet 650 MG PO (09:55)
[2024-07-27] MEDS: diphenhydrAMINE 50 mg/mL SDV 1mL IVP (09:55)
[2024-07-27 10:20] VITALS: BP 107/71; PULSE 70; RESP 18; TEMP 36.9; O2SAT 97
[2024-07-27] MEDS: obinutuzumab 1,000 MG in sodium chloride 0.9% 250 ML 29 MG IV (10:20)
[2024-07-27 10:55] VITALS: BP 112/74; PULSE 69; RESP 17; TEMP 36.3; O2SAT 97
[2024-07-27 11:25] VITALS: BP 105/66; PULSE 70; RESP 18; TEMP 36.7; O2SAT 96
[2024-07-27 11:55] VITALS: BP 108/72; PULSE 73; RESP 18; TEMP 36.4; O2SAT 97
[2024-07-27 13:55] VITALS: BP 108/76; PULSE 73; RESP 18; TEMP 36.2; O2SAT 97
== END 2024-07-27 23:59 | disposition home or self-care (01) ==
PROVIDERS: PCP Family Medicine; Visit Provider Internal Medicine Medical Oncology
DX: Z53.9 Procedure and treatment not carried out, unspecified reason; Z51.11 Encounter for antineoplastic chemotherapy; C91.10 Chronic lymphocytic leukemia of B-cell type not having achieved remission; Z79.52 Long term (current) use of systemic steroids; Z79.899 Other long term (current) drug therapy
CPT/HCPCS: 36415; 80053; 83615; 84550; 85025; 96375; 96413; 96415; 99214; J1100; J1200; J7050; J9301; J9999

== ENCOUNTER 2024-08-24 07:14 | Oncology outpatient (recurring) (ONCR) | payer MEDICARE, OTHER, SELFPAY ==
[2024-08-24 07:49] LABS: Basophils % 1.3 %; Hematocrit 45.1 % (37-53); Lymphocytes # 0.9 10^3/uL (0.8-4.8); Lymphocytes % 27.6 %; Mean Corpuscular HGB Conc 32.6 g/dL (30-55); Mean Corpuscular Hemoglobin 29.9 pg (27-33); Mean Corpuscular Volume 91.9 fl (82-101); Mean Platelet Volume 10.8 fL (7.4-10.4); Monocytes # 0.4 10^3/uL (0.2-0.9); Monocytes % 11.6 %; Neutrophils # 1.89 10^3/uL (1.8-7.7); Neutrophils % 59.2 %; Nucleated Red Blood Cells % 0 %; Platelet Count 213 10^3/cmm (157-399); Red Blood Count 4.91 10^6/uL (3.85-5.65); Red Cell Distribution Width 12.6 % (12.1-15.1); White Blood Count 3.19 10^3/uL (3.29-11.43)
[2024-08-24 08:56] LABS: Alanine Aminotransferase 12 U/L (0-41); Albumin Level 4.2 g/dL (3.5-5.2); Alkaline Phosphatase 57 U/L (40-130); Anion Gap 12.9 (5-19); Aspartate Amino Transferase 14 U/L (0-40); Blood Urea Nitrogen 7 mg/dL (8-23); Calcium 8.6 mg/dL (8.5-10.5); Carbon Dioxide 27 mmol/L (22-29); Chloride 105 mmol/L (98-107); Creatinine Clr Calc Pharmacy 98.2777; Globulin 1.9 g/dL (1.3-4.6); Glomerular Filtration Rate 112.8 mL/min (90-130); Glucose 126 mg/dL (65-115); Osmolality Calculated 292 mOsm/kg (285-295); Potassium 3.9 mmol/L (3.5-5.1); Sodium 141 mmol/L (136-145); Total Bilirubin 0.4 mg/dL (0.15-1.2); Total Protein 6.1 g/dL (6.6-8.7)
[2024-08-24] MEDS: acetaminophen 325 mg Tablet 650 MG PO (09:35)
[2024-08-24] MEDS: dexamethasone 20 MG in sodium chloride 0.9% 50 ML 188 MG IV (09:35)
[2024-08-24] MEDS: sodium chloride 0.9% 250 ML 25 ML IV (09:35)
[2024-08-24] MEDS: diphenhydrAMINE 50 mg/mL SDV 1mL IVP (09:41)
[2024-08-24 10:35] VITALS: BP 111/72; PULSE 65; RESP 16; TEMP 36.6; O2SAT 96
[2024-08-24] MEDS: obinutuzumab 1,000 MG in sodium chloride 0.9% 250 ML 30 MG IV (10:35)
[2024-08-24 10:55] VITALS: BP 110/71; PULSE 62; RESP 16; TEMP 36.8; O2SAT 96
[2024-08-24 11:40] VITALS: BP 107/70; PULSE 63; RESP 16; TEMP 36.3; O2SAT 96
[2024-08-24 12:10] VITALS: BP 116/75; PULSE 65; RESP 16; TEMP 36.4; O2SAT 97
[2024-08-24 14:15] VITALS: BP 121/81; PULSE 65; RESP 17; TEMP 36.7; O2SAT 96
== END 2024-08-24 23:59 | disposition home or self-care (01) ==
PROVIDERS: Internal Medicine Medical Oncology; Nurse Practitioner Family; PCP Family Medicine; Visit Provider Internal Medicine
DX: Z51.11 Encounter for antineoplastic chemotherapy (principal); C91.10 Chronic lymphocytic leukemia of B-cell type not having achieved remission; K13.0 Diseases of lips; Z79.899 Other long term (current) drug therapy
CPT/HCPCS: 36415; 80053; 85025; 96367; 96375; 96413; 96415; 99214; J1100; J1200; J7050; J9301; J9999

== ENCOUNTER 2024-09-21 07:10 | Oncology outpatient (recurring) (ONCR) | payer MEDICARE, OTHER, SELFPAY ==
[2024-09-21 07:27] LABS: Hematocrit 48.8 % (37-53); Hemoglobin 15.80 g/dL (11.27-16.99); Mean Corpuscular HGB Conc 32.4 g/dL (30-55); Mean Corpuscular Hemoglobin 29.6 pg (27-33); Mean Corpuscular Volume 91.6 fl (82-101); Nucleated Red Blood Cells % 0 %; Platelet Count 234 10^3/cmm (157-399); Red Blood Count 5.33 10^6/uL (3.85-5.65); White Blood Count 4.54 10^3/uL (3.29-11.43)
[2024-09-21 07:49] LABS: Alanine Aminotransferase 12 U/L (0-41); Albumin Level 4.0 g/dL (3.5-5.2); Alkaline Phosphatase 77 U/L (40-130); Anion Gap 14.9 (5-19); Aspartate Amino Transferase 14 U/L (0-40); Blood Urea Nitrogen 8 mg/dL (8-23); Calcium 8.8 mg/dL (8.5-10.5); Carbon Dioxide 27 mmol/L (22-29); Chloride 106 mmol/L (98-107); Globulin 2.2 g/dL (1.3-4.6); Glucose 126 mg/dL (65-115); Osmolality Calculated 298 mOsm/kg (285-295); Potassium 3.9 mmol/L (3.5-5.1); Sodium 144 mmol/L (136-145); Total Protein 6.2 g/dL (6.6-8.7)
[2024-09-21] MEDS: diphenhydrAMINE 50 mg/mL SDV 1mL IVP (09:02)
[2024-09-21 10:12] VITALS: BP 108/68; PULSE 61; RESP 16; TEMP 36.7; O2SAT 97
[2024-09-21] MEDS: obinutuzumab 1,000 MG in sodium chloride 0.9% 250 ML 29 MG IV (10:12)
[2024-09-21 10:45] VITALS: BP 110/73; PULSE 60; RESP 16; TEMP 36.8; O2SAT 96
[2024-09-21 11:16] VITALS: BP 111/77; PULSE 73; RESP 16; TEMP 36.4; O2SAT 97
[2024-09-21 11:46] VITALS: BP 113/76; PULSE 71; RESP 16; TEMP 36.7; O2SAT 97
[2024-09-21 13:40] VITALS: BP 126/86; PULSE 89; RESP 18; TEMP 37; O2SAT 95
== END 2024-09-21 23:59 | disposition home or self-care (01) ==
PROVIDERS: Nurse Practitioner Family; PCP Family Medicine; Visit Provider Internal Medicine Medical Oncology
DX: Z51.11 Encounter for antineoplastic chemotherapy (principal); C91.10 Chronic lymphocytic leukemia of B-cell type not having achieved remission; Z79.899 Other long term (current) drug therapy; Z79.52 Long term (current) use of systemic steroids
CPT/HCPCS: 80053; 85025; 96375; 96413; 96415; 99214; J1100; J1200; J7050; J9301; J9999

== ENCOUNTER 2024-10-19 07:10 | Oncology outpatient (recurring) (ONCR) | payer MEDICARE, OTHER, SELFPAY ==
[2024-10-19 07:25] LABS: Hematocrit 47.0 % (37-53); Hemoglobin 15.30 g/dL (11.27-16.99); Mean Corpuscular HGB Conc 32.6 g/dL (30-55); Mean Corpuscular Hemoglobin 29.1 pg (27-33); Mean Corpuscular Volume 89.4 fl (82-101); Nucleated Red Blood Cells % 0 %; Platelet Count 230 10^3/cmm (157-399); Red Blood Count 5.26 10^6/uL (3.85-5.65); White Blood Count 4.65 10^3/uL (3.29-11.43)
[2024-10-19 07:42] LABS: Alanine Aminotransferase 13 U/L (0-41); Albumin Level 4.1 g/dL (3.5-5.2); Alkaline Phosphatase 68 U/L (40-130); Anion Gap 12.9 (5-19); Aspartate Amino Transferase 15 U/L (0-40); Blood Urea Nitrogen 7 mg/dL (8-23); Calcium 8.9 mg/dL (8.5-10.5); Carbon Dioxide 27 mmol/L (22-29); Chloride 104 mmol/L (98-107); Globulin 2.0 g/dL (1.3-4.6); Glucose 156 mg/dL (65-115); Osmolality Calculated 291 mOsm/kg (285-295); Potassium 3.9 mmol/L (3.5-5.1); Sodium 140 mmol/L (136-145); Total Protein 6.1 g/dL (6.6-8.7)
[2024-10-19] MEDS: diphenhydrAMINE 50 mg/mL SDV 1mL IVP (09:13)
[2024-10-19] MEDS: obinutuzumab 1,000 MG in sodium chloride 0.9% 250 ML 29 MG IV (09:54)
[2024-10-19 09:55] VITALS: BP 111/77; PULSE 67; RESP 17; TEMP 36.9; O2SAT 97
[2024-10-19 13:26] VITALS: BP 128/78; PULSE 69; RESP 18; TEMP 36.6; O2SAT 98
[2024-10-19 13:35] VITALS: BP 121/78; PULSE 67; RESP 18; TEMP 36.7; O2SAT 98
== END 2024-10-19 23:59 | disposition home or self-care (01) ==
PROVIDERS: PCP Family Medicine; Visit Provider Internal Medicine Medical Oncology
DX: Z51.11 Encounter for antineoplastic chemotherapy (principal); C91.10 Chronic lymphocytic leukemia of B-cell type not having achieved remission; K59.00 Constipation, unspecified; Z79.899 Other long term (current) drug therapy; Z79.52 Long term (current) use of systemic steroids
CPT/HCPCS: 80053; 85025; 96375; 96413; 96415; 99214; J1100; J1200; J7050; J9301; J9999

== ENCOUNTER 2024-11-16 07:56 | Oncology outpatient (recurring) (ONCR) | payer MEDICARE, SELFPAY ==
[2024-11-16 08:37] LABS: Hematocrit 46.2 % (37-53); Hemoglobin 15.00 g/dL (11.27-16.99); Mean Corpuscular HGB Conc 32.5 g/dL (30-55); Mean Corpuscular Hemoglobin 29.4 pg (27-33); Mean Corpuscular Volume 90.6 fl (82-101); Nucleated Red Blood Cells % 0 %; Platelet Count 251 10^3/cmm (157-399); Red Blood Count 5.10 10^6/uL (3.85-5.65); White Blood Count 6.59 10^3/uL (3.29-11.43)
[2024-11-16 08:54] LABS: Alanine Aminotransferase 15 U/L (0-41); Albumin Level 4.4 g/dL (3.5-5.2); Alkaline Phosphatase 64 U/L (40-130); Anion Gap 14.2 (5-19); Aspartate Amino Transferase 16 U/L (0-40); Blood Urea Nitrogen 10 mg/dL (8-23); Calcium 8.9 mg/dL (8.5-10.5); Carbon Dioxide 28 mmol/L (22-29); Chloride 103 mmol/L (98-107); Globulin 2.2 g/dL (1.3-4.6); Glucose 114 mg/dL (65-115); Osmolality Calculated 292 mOsm/kg (285-295); Potassium 4.2 mmol/L (3.5-5.1); Sodium 141 mmol/L (136-145); Total Protein 6.6 g/dL (6.6-8.7)
== END 2024-11-30 23:59 | disposition home or self-care (01) ==
PROVIDERS: Nurse Practitioner Family; PCP Family Medicine; Visit Provider Internal Medicine Medical Oncology
DX: C91.10 Chronic lymphocytic leukemia of B-cell type not having achieved remission (principal); R03.0 Elevated blood-pressure reading, without diagnosis of hypertension; Z79.899 Other long term (current) drug therapy
CPT/HCPCS: 36415; 80053; 85025; 99214

== ENCOUNTER 2024-12-14 11:14 | Oncology outpatient (recurring) (ONCR) | payer MEDICARE, SELFPAY ==
[2024-12-14 11:44] LABS: Hematocrit 47.7 % (37-53); Hemoglobin 15.50 g/dL (11.27-16.99); Mean Corpuscular HGB Conc 32.5 g/dL (30-55); Mean Corpuscular Hemoglobin 29.5 pg (27-33); Mean Corpuscular Volume 90.9 fl (82-101); Nucleated Red Blood Cells % 0 %; Platelet Count 257 10^3/cmm (157-399); Red Blood Count 5.25 10^6/uL (3.85-5.65); White Blood Count 5.12 10^3/uL (3.29-11.43)
[2024-12-14 12:02] LABS: Alanine Aminotransferase 14 U/L (0-41); Albumin Level 4.6 g/dL (3.5-5.2); Alkaline Phosphatase 61 U/L (40-130); Anion Gap 15.4 (5-19); Aspartate Amino Transferase 17 U/L (0-40); Blood Urea Nitrogen 8 mg/dL (8-23); Calcium 9.3 mg/dL (8.5-10.5); Carbon Dioxide 27 mmol/L (22-29); Chloride 100 mmol/L (98-107); Creatinine Clr Calc Pharmacy 100.1420; Globulin 2.4 g/dL (1.3-4.6); Glucose 100 mg/dL (65-115); Osmolality Calculated 284 mOsm/kg (285-295); Potassium 4.4 mmol/L (3.5-5.1); Sodium 138 mmol/L (136-145); Total Protein 7.0 g/dL (6.6-8.7)
== END 2024-12-31 23:59 | disposition home or self-care (01) ==
PROVIDERS: PCP Family Medicine; Visit Provider Internal Medicine Medical Oncology
DX: C91.10 Chronic lymphocytic leukemia of B-cell type not having achieved remission (principal); R03.0 Elevated blood-pressure reading, without diagnosis of hypertension; Z79.899 Other long term (current) drug therapy
CPT/HCPCS: 36415; 80053; 83615; 85025; 99213

== ENCOUNTER 2025-01-11 12:06 | Oncology outpatient (recurring) (ONCR) | payer MEDICARE, SELFPAY ==
[2025-01-11 12:19] LABS: Hematocrit 44.7 % (37-53); Hemoglobin 14.70 g/dL (11.27-16.99); Mean Corpuscular HGB Conc 32.9 g/dL (30-55); Mean Corpuscular Hemoglobin 30.0 pg (27-33); Mean Corpuscular Volume 91.2 fl (82-101); Nucleated Red Blood Cells % 0 %; Platelet Count 243 10^3/cmm (157-399); Red Blood Count 4.90 10^6/uL (3.85-5.65); White Blood Count 3.98 10^3/uL (3.29-11.43)
[2025-01-11 12:36] LABS: Alanine Aminotransferase 8 U/L (0-41); Albumin Level 4.5 g/dL (3.5-5.2); Alkaline Phosphatase 61 U/L (40-130); Anion Gap 13.0 (5-19); Aspartate Amino Transferase 20 U/L (0-40); Blood Urea Nitrogen 6 mg/dL (8-23); Calcium 8.9 mg/dL (8.5-10.5); Carbon Dioxide 29 mmol/L (22-29); Chloride 99 mmol/L (98-107); Globulin 2.3 g/dL (1.3-4.6); Glucose 150 mg/dL (65-115); Osmolality Calculated 284 mOsm/kg (285-295); Potassium 4.0 mmol/L (3.5-5.1); Sodium 137 mmol/L (136-145); Total Protein 6.8 g/dL (6.6-8.7)
== END 2025-01-30 23:59 | disposition home or self-care (01) ==
PROVIDERS: Nurse Practitioner; PCP Family Medicine; Visit Provider Internal Medicine Medical Oncology
DX: C91.10 Chronic lymphocytic leukemia of B-cell type not having achieved remission (principal); R03.0 Elevated blood-pressure reading, without diagnosis of hypertension; Z79.899 Other long term (current) drug therapy
CPT/HCPCS: 36415; 80053; 83615; 85025; 99213

== ENCOUNTER 2025-02-08 11:59 | Oncology outpatient (recurring) (ONCR) | payer MEDICARE, SELFPAY ==
[2025-02-08 12:27] LABS: Hematocrit 48.1 % (37-53); Hemoglobin 15.90 g/dL (11.27-16.99); Mean Corpuscular HGB Conc 33.1 g/dL (30-55); Mean Corpuscular Hemoglobin 29.7 pg (27-33); Mean Corpuscular Volume 89.7 fl (82-101); Nucleated Red Blood Cells % 0 %; Platelet Count 238 10^3/cmm (157-399); Red Blood Count 5.36 10^6/uL (3.85-5.65); White Blood Count 4.62 10^3/uL (3.29-11.43)
[2025-02-08 12:54] LABS: Alanine Aminotransferase 12 U/L (0-41); Albumin Level 4.4 g/dL (3.5-5.2); Alkaline Phosphatase 72 U/L (40-130); Anion Gap 15.3 (5-19); Aspartate Amino Transferase 16 U/L (0-40); Blood Urea Nitrogen 8 mg/dL (8-23); Calcium 9.2 mg/dL (8.5-10.5); Carbon Dioxide 27 mmol/L (22-29); Chloride 103 mmol/L (98-107); Globulin 2.6 g/dL (1.3-4.6); Glucose 116 mg/dL (65-115); Osmolality Calculated 291 mOsm/kg (285-295); Potassium 4.3 mmol/L (3.5-5.1); Sodium 141 mmol/L (136-145); Total Protein 7.0 g/dL (6.6-8.7)
== END 2025-03-02 23:59 | disposition home or self-care (01) ==
PROVIDERS: Nurse Practitioner; PCP Family Medicine; Visit Provider Internal Medicine Medical Oncology
DX: C91.10 Chronic lymphocytic leukemia of B-cell type not having achieved remission (principal); R03.0 Elevated blood-pressure reading, without diagnosis of hypertension; Z79.899 Other long term (current) drug therapy
CPT/HCPCS: 36415; 80053; 83615; 85025; 99213